=== PATIENT | female | born 1955 | race American Indian/Alaskan Native ===

== ENCOUNTER 2016-12-17 21:37 | Emergency (ER) | payer OTHER ==
[2016-12-17] MEDS ORDERED: TYLENOL PO ONE (23:17)
--- NOTE | 2016-12-18 00:05 | XRay Report ---
FINAL REPORT EXAM: XR ANKLE 3+V LT HISTORY: Left ankle swelling COMPARISON: None available. FINDINGS: Three views of left ankle obtained. Transverse nondisplaced fracture of the distal fibula. Prominent soft tissue swelling. Ankle mortise is preserved. No other fracture. IMPRESSION: Transverse nondisplaced fracture of the distal fibula.
--- NOTE | 2016-12-18 00:40 | Emergency Department Report ---
HPI - General Chief Complaint: Extremity Injury, Lower Time Seen by Provider: 12/18/16 00:35 - HPI HPI: She is a 61-year-old female presents to ED complaining of left ankle swelling and pain started this morning. Patient states earlier this morning she slipped on some mild and sister ankle while she was walking. Patient states this is that she says some pain and swelling on ankle. This is that she applied some isolated episode has gone down. But still painful to walk. She denies a sensation on the foot. She denies any other trauma or bleeding. ED Past Medical Hx - Past Medical History Previous Medical History?: No - Surgical History Past Surgical History?: No - Social History Smoking Status: Current Some Day Smoker Substance Use Type: None - Medications Home Medications: Home Medications Medication Instructions Recorded Confirmed Last Taken Type Acetaminophen/Codeine [Tylenol 1 tab PO Q6H PRN #12 tab 12/18/16 Unknown Rx /Codeine # 3 tab] Cyclobenzaprine [Flexeril] 10 mg PO QHS PRN #24 tablet 12/18/16 Unknown Rx ED Review of Systems ROS: Stated complaint: LT ANKLE PAIN Other details as noted in HPI Constitutional: denies: chills, fever Eyes: denies: eye pain, eye discharge, vision change ENT: denies: ear pain, throat pain Respiratory: denies: cough, shortness of breath, wheezing Cardiovascular: denies: chest pain, palpitations Endocrine: no symptoms reported Gastrointestinal: denies: abdominal pain, nausea, diarrhea Genitourinary: denies: urgency, dysuria, discharge Musculoskeletal: denies: back pain, joint swelling, arthralgia Skin: denies: rash, lesions Neurological: denies: headache, weakness, paresthesias Psychiatric: denies: anxiety, depression Hematological/Lymphatic: denies: easy bleeding, easy bruising Physical Exam - Physical Exam Vital Signs: Vital Signs 12/17/16 23:08 Temperature 98.6 F Pulse Rate 98 H Respiratory 18 Rate Blood Pressure 171/91 Blood Pressure 171/91 [Left] O2 Sat by Pulse 100 Oximetry Physical Exam: GENERAL: Alert and oriented x3, no apparent distress, Normal Gait, atraumatic. HEAD: Head is normocephalic and a-traumatic. EYES: Extra ocular muscles are intact. Pupils are equal, round, and reactive to light and accommodation. NECK: Supple. Non edematous, No carotid bruits. No lymphadenopathy or thyromegaly. No C-spine tenderness LUNGS: Symetrical with respiration, No wheezing, no rales or crackles, CTAB. HEART: S1, S2 present, regular rate and rhythm without murmur, no rubs, no gallops. Non tender to palpation ABDOMEN: No organomegaly was noted,Positive bowel sounds, soft, and non- distended. . Nontender to palpation on all Quadrants, NO CVA tenderness. EXTREMITIES/MUSCULOSKELETAL: No cyanosis, clubbing, rash, lesions or edema. Full ROM bilaterally. UE/LE Pulses 2+ bilaterally. LE + strength bilaterally, left ankle mildly swollen, tender to palpation, no ecchymosis no bleeding. NEUROLOGIC: The patient is cooperative with no focal neurologic deficits. Cranial nerves II through XII are grossly intact. Normal speech. PSYCHIATRIC: Mood is congruent with affect, denies suicidal or homicidal ideations. SKIN: Warm and dry, No lesions, No ulceration or induration present. ED Course Vital Signs 12/17/16 23:08 Temperature 98.6 F Pulse Rate 98 H Respiratory 18 Rate Blood Pressure 171/91 Blood Pressure 171/91 [Left] O2 Sat by Pulse 100 Oximetry ED Medical Decision Making - Radiology Data Radiology results: report reviewed, image reviewed FINAL REPORT EXAM: XR ANKLE 3+V LT HISTORY: Left ankle swelling COMPARISON: None available. FINDINGS: Three views of left ankle obtained. Transverse nondisplaced fracture of the distal fibula. Prominent soft tissue swelling. Ankle mortise is preserved. No other fracture. IMPRESSION: Transverse nondisplaced fracture of the distal fibula. Transcribed By: LMA Dictated By: SERGEY CUNNINGHAM MD Electronically Authenticated By: SERGEY CUNNINGHAM MD Signed Date/Time: 12/18/16 0004 - Medical Decision Making 61-year-old female presents with distal fibular fracture. ED course: He received [facility] ED for pain leg x-rays obtained. See results above. Discussed findings with patient. Also patient importance of following up with orthopedic Dr. Rich Discussed medication as prescribed and did not take all splint until followed up with orthopedic Reynaldo long posterior OCL splint applied. Post-splint Examination: stable, neurovascular intact Vital signs are normal she is in no acute distress showed a sinus instructions given Critical care attestation.: If time is entered above; I have spent that time in minutes in the direct care of this critically ill patient, excluding procedure time. ED Disposition Clinical Impression: Fracture of distal fibula Qualifiers: Encounter type: initial encounter Fracture type: closed Fracture morphology: other fracture Laterality: left Qualified Code(s): S82.832A - Other fracture of upper and lower end of left fibula, initial encounter for closed fracture Disposition: TO HOME OR SELFCARE Is pt being admited?: No Does the pt Need Aspirin: No Condition: Stable Instructions: Ankle Fracture (ED), Leg Fracture (ED), Crutch Instructions (ED) , RICE Therapy (ED) Additional Instructions: Follow the rash protocols as discussed. follow-up with Dr. Rich was orthopedic. Prescriptions: Cyclobenzaprine [Flexeril] 10 mg PO QHS PRN #24 tablet PRN Reason: Muscle Spasm Acetaminophen/Codeine [Tylenol /Codeine # 3 tab] 1 tab PO Q6H PRN #12 tab PRN Reason: Pain Referrals: BOLIVAR RICH MD [Staff Physician] - 3-5 Days Forms: Accompanied Note, Work/School Release Form(ED) Time of Disposition: :22
[2016-12-18] MEDS ORDERED: NORCO 5/325 PO ONE (00:52)
[2016-12-18 02:29] VITALS: BP 162/89
== END 2016-12-18 02:29 | disposition home or self-care (01) ==
LOC: ED 21:37
DX: S82.832A Other fracture of upper and lower end of left fibula, initial encounter for closed fracture (principal); F17.200 Nicotine dependence, unspecified, uncomplicated; W01.0XXA Fall on same level from slipping, tripping and stumbling without subsequent striking against object, initial encounter; Y93.9 Activity, unspecified; Y92.9 Unspecified place or not applicable; Y99.9 Unspecified external cause status

== ENCOUNTER 2018-11-26 05:38 | Inpatient (IN) | payer OTHER ==
[2018-11-26] MEDS ORDERED: ASPIRIN PO ONE (05:57)
[2018-11-26] MEDS ORDERED: PLAVIX PO ONE (05:59)
[2018-11-26] MEDS ORDERED: HEPARIN 10,000 UNITS/10 ML IV ONE (06:00)
[2018-11-26] MEDS ORDERED: MORPHINE IV ONE ×2 (06:00→06:09)
--- NOTE | 2018-11-26 06:06 | Emergency Department Report ---
ED Chest Pain HPI - General Chief Complaint: Chest Pain Stated Complaint: CHEST PAIN Source: patient, EMS Mode of arrival: Stretcher Limitations: Physical Limitation - History of Present Illness Initial Comments: 63 yo F with no PMH presents to ED with complaint of left sided chest pain, onset upon waking this morning. Describes pain as burning, pressure. Denies SOB, N/V. Initial EKG sent via EMS was sent to Dr Rodriguez, who opted to repeat EKG upon ED arrival. EKG here in ED shows ST elevation in anterior leads, no significant reciprocal changes. EKG sent to Dr Rodriguez, wants Code STEMI called. Aspirin given to pt by EMS in the field. Reports tobacco use, denies drug use. PCP: Dr Holly SOTELO Complaint: chest pain -: hour(s) (1) Onset: during rest Pain Location: left chest Pain Radiation: none Severity: severe Severity scale (0 -10): 10 Quality: pressure, other (burning) Consistency: constant Improves With: nothing Worsens With: nothing re: denies: nausea, vomting, diaphoresis, dyspnea Treatments Prior to Arrival: aspirin - Related Data Previous Rx's Medication Instructions Recorded Last Taken Type Acetaminophen/Codeine [Tylenol 1 tab PO Q6H PRN #12 tab 12/18/16 Unknown Rx /Codeine # 3 tab] Cyclobenzaprine [Flexeril] 10 mg PO QHS PRN #24 tablet 12/18/16 Unknown Rx Allergies Allergy/AdvReac Type Severity Reaction Status Date / Time ibuprofen [From Motrin] Allergy Vomiting Verified 12/18/16 00:40 Heart Score - HEART Score History: Moderately suspicious EKG: Significant ST-depression Age: 45-65 Risk factors: 1-2 risk factors Troponin: 1-3x normal limit HEART Score: 6 ED Review of Systems ROS: Stated complaint: CHEST PAIN Other details as noted in HPI Comment: All other systems reviewed and negative Respiratory: denies: shortness of breath Cardiovascular: chest pain Gastrointestinal: denies: nausea, vomiting ED Past Medical Hx - Past Medical History Previous Medical History?: No - Surgical History Past Surgical History?: No - Social History Smoking Status: Current Every Day Smoker Substance Use Type: None - Medications Home Medications: Home Medications Medication Instructions Recorded Confirmed Last Taken Type Acetaminophen/Codeine [Tylenol 1 tab PO Q6H PRN #12 tab 12/18/16 11/26/18 Unknown Rx /Codeine # 3 tab] Cyclobenzaprine [Flexeril] 10 mg PO QHS PRN #24 tablet 12/18/16 11/26/18 Unknown Rx ED Physical Exam - General Limitations: Physical Limitation General appearance: alert, other (appears uncomfortable) - Head Head exam: Present: atraumatic, normocephalic - Eye Eye exam: Present: normal appearance, PERRL, EOMI - ENT ENT exam: Present: mucous membranes moist - Neck Neck exam: Present: normal inspection - Respiratory Respiratory exam: Present: normal lung sounds bilaterally. Absent: respiratory distress - Cardiovascular Cardiovascular Exam: Present: regular rate, normal rhythm - GI/Abdominal GI/Abdominal exam: Present: soft. Absent: distended, tenderness - Extremities Exam Extremities exam: Present: normal inspection - Neurological Exam Neurological exam: Present: alert, oriented X3 - Psychiatric Psychiatric exam: Present: normal affect, normal mood - Skin Skin exam: Present: warm, dry, intact, normal color ED Course Vital Signs 11/26/18 11/26/18 11/26/18 05:54 06:00 06:07 Temperature 98.1 F Pulse Rate 89 Respiratory 18 16 Rate Blood Pressure 174/77 Blood Pressure 174/77 [Left] O2 Sat by Pulse 97 97 Oximetry 11/26/18 06:10 Temperature Pulse Rate Respiratory 18 Rate Blood Pressure Blood Pressure [Left] O2 Sat by Pulse Oximetry ED Medical Decision Making - Lab Data Result diagrams: 11/26/18 13:40 11/27/18 05:40 - EKG Data -: EKG Interpreted by [place] EKG shows normal: sinus rhythm, axis Rate: normal - EKG Data Interpretation: other ( ST elevation in anterior leads, no significant reciprocal changes noted; ventricular bigeminy) - Radiology Data Radiology results: pending, image reviewed - Medical Decision Making 63-year-old female with no reported past medical history presents to ED with acute onset of chest pain. EKG shows ST elevations in the anterior leads, also shows bigeminy. Code STEMI was called. Patient given aspirin by EMS. Plavix, heparin, morphine given here in ED. Patient taken to the technical laboratory asst with Dr. Rodriguez, education program coordinator. - Differential Diagnosis ACS, GERD, arrythmia Critical Care Time: Yes Critical care time in (mins) excluding proc time.: 35 Critical care attestation.: If time is entered above; I have spent that time in minutes in the direct care of this critically ill patient, excluding procedure time. Critical Care Time: 35 minutes ED Disposition Clinical Impression: STEMI (ST elevation myocardial infarction) Disposition: OP ADMIT IP TO THIS HOSP Is pt being admited?: Yes Condition: Stable Time of Disposition: 06:13
[2018-11-26] MEDS ORDERED: ZOFRAN IV ONE (06:09)
[2018-11-26] MEDS ORDERED: ZOFRAN ONE (06:11)
[2018-11-26 06:13] LABS: Basophils % (Auto) 0.5 % (0.0-1.8); Eosinophils # (Auto) 0.1 K/mm3 (0.0-0.4); Eosinophils % (Auto) 0.9 % (0.0-4.3); Hematocrit 47.5 % (30.3-42.9); Hemoglobin 16.1 gm/dl (10.1-14.3); Lymphocytes # (Auto) 1.4 K/mm3 (1.2-5.4); Lymphocytes % (Auto) 20.9 % (13.4-35.0); Mean Corpuscular HGB Conc 34 % (30-34); Mean Corpuscular Volume 94 fl (79-97); Monocytes # (Auto) 0.5 K/mm3 (0.0-0.8); Monocytes % (Auto) 6.7 % (0.0-7.3); Platelet Count 213 K/mm3 (140-440); Red Blood Count 5.05 M/mm3 (3.65-5.03); Red Cell Distribution Width 14.4 % (13.2-15.2)
[2018-11-26 06:26] LABS: BUN/Creatinine Ratio 14; Blood Urea Nitrogen 10 mg/dL (7-17); Calcium 8.7 mg/dL (8.4-10.2); Hemolysis Index 8
[2018-11-26] MEDS ORDERED: HEPARIN/NS 5000 UNIT/500ML(CATH LAB) 1,500 ML IR ONE (06:30)
[2018-11-26 06:31] LABS: INR 0.94 (0.87-1.13)
[2018-11-26] MEDS ORDERED: XYLOCAINE 2% INFILTRATI ONE (06:31)
[2018-11-26 06:32] LABS: Partial Thromboplastin Time 21.3 Sec. (24.2-36.6)
--- NOTE | 2018-11-26 06:35 | XRay Report ---
CHEST 1 VIEW INDICATION: MAIN: Chest Pain code stemi. COMPARISON: None FINDINGS: Support devices: None. Heart: Mild cardiomegaly. Lungs/Pleura: Mild interstitial edema. Additional findings: None. IMPRESSION: 1. Mild cardiomegaly with mild interstitial edema. Signer Name: Ino Hill MD Signed: 11/26/2018 6:31 AM Workstation Name: [id number]
[2018-11-26] MEDS ORDERED: NACL 0.9% 1000 ML 1,000 ML ONE (06:40)
[2018-11-26] MEDS ORDERED: ADRENALIN ONE (06:41)
[2018-11-26] MEDS ORDERED: PHENYLEPHRINE/NS Syringe 1,000 MCG/10 ML IV ONE (06:41)
[2018-11-26] MEDS ORDERED: ATROPINE 0.1% (CARDIAC) ONE (06:41)
[2018-11-26] MEDS ORDERED: XYLOCAINE CARDIAC IV ONE (06:41)
[2018-11-26] MEDS ORDERED: VERSED ONE (06:45)
[2018-11-26] MEDS: SUBLIMAZE ONE ×2 (06:46→07:23)
[2018-11-26] MEDS ORDERED: NITROGLYCERIN SYRINGE 3 ML ONE (06:47)
[2018-11-26] MEDS ORDERED: CALAN ONE (06:47)
[2018-11-26] MEDS: HEPARIN 10,000 UNITS/10 ML ONE ×2 (06:50→06:57)
[2018-11-26] MEDS ORDERED: PLAVIX ONE (07:01)
[2018-11-26] MEDS ORDERED: ALUM-MAG HYDROX-SIMETH 200-200-20MG/5ML ONE ×2 (07:02→08:58)
[2018-11-26 07:08] LABS: Chol/HDL Ratio 2.34 %; HDL Cholesterol 61 mg/dL (40-59); LDL Cholesterol,Direct 92 mg/dL (50-130)
[2018-11-26] MEDS ORDERED: AGGRASTAT DRIP (12.5 MG/250 ML) 12,500 MCG/250 ML BAG IV ONE (07:17)
[2018-11-26] MEDS ORDERED: TRIDIL DRIP 50MG/250ML 50 MG/250 ML BOTTLE ONE (07:27)
[2018-11-26] MEDS ORDERED: TRIDIL DRIP 50MG/250ML 50 MG/250 ML BOTTLE IV ONE (07:46)
[2018-11-26] MEDS ORDERED: ULTRAM PO PRN (07:46)
--- NOTE | 2018-11-26 07:59 | History and Physical Report ---
History of Present Illness Date of examination: 11/26/18 Date of admission: 11/26/2018 Chief complaint: chest pain History of present illness: 63-year-old female with obesity smoker half a pack a day has been having mid sternal chest pressure burning in nature with sweating nausea no vomiting since last night 7 PM patient thought it was gas did not relieve with medications. Patient called EMS this a.m. with recurrent chest discomfort initial EKG was not qualifying for an acute MIs frequent PVCs and no reciprocal changes. EKG in the emergency room had ST elevation in anterior leads with PVCs and brought emergently to the cardiac Respiratory Therapist for acute VT protocol. Left heart cath revealed left main patent LAD proximal 100% circumflex patent obtuse marginal 1 and obtuse marginal 2. RCA moderate severe tortuosity. Mild luminal irregularities. moderate LV dysfunction anterior wall hypokinesis EF 35%. PCI of the LAD with a drug-eluting resolution on next 3.5 x 18 mm postdilated with a 4.0 by 12 restoring DOMINIK-3 flow patient's chest pain did improve. Patient denies any previous episodes chest discomfort like this patient also denies any syncope or palpitations. Denies any fever chills Past History Past Medical History: denies: No medical history Past Surgical History: denies: No surgical history Social history: smoking. denies: alcohol abuse, prescription drug abuse Medications and Allergies Allergies Allergy/AdvReac Type Severity Reaction Status Date / Time ibuprofen [From Motrin] Allergy Vomiting Verified 12/18/16 00:40 Home Medications Medication Instructions Recorded Confirmed Last Taken Type Acetaminophen/Codeine [Tylenol 1 tab PO Q6H PRN #12 tab 12/18/16 Unknown Rx /Codeine # 3 tab] Cyclobenzaprine [Flexeril] 10 mg PO QHS PRN #24 tablet 12/18/16 Unknown Rx Active Meds: Active Medications Acetaminophen/Hydrocodone Bitart ([place] 5/325) 1 each PO Q6H PRN PRN Reason: Pain, Moderate (4-6) Aspirin (Baby Aspirin) 81 mg PO QDAY TATA Atorvastatin Calcium (Lipitor) 80 mg PO QHS TATA Clopidogrel Bisulfate (Plavix) 75 mg PO QDAY TATA Sodium Chloride (Nacl 0.9% 1000 Ml) 1,000 mls @ 75 mls/hr IV DIRECT TATA Stop: 11/26/18 15:59 Nitroglycerin/Dextrose (Tridil Drip 50mg/250ml) 50 mg in 250 mls @ 6 mls/hr IV TITR ONE; Protocol Stop: 11/28/18 01:25 Tirofiban/Sodium Chloride (Aggrastat Drip (12.5 Mg/250 Ml)) 12,500 mcg in 250 mls @ 0 mls/hr IV DIRECT TATA; Protocol Stop: 11/27/18 20:00 Losartan Potassium (Cozaar) 25 mg PO QDAY TATA Metoprolol Tartrate (Lopressor) 50 mg PO BID TATA Potassium Chloride (K-Dur) 20 meq PO ONCE ONE Stop: 11/26/18 07:52 Spironolactone (Aldactone) 25 mg PO DAILY TATA Tramadol HCl (Ultram) 50 mg PO Q4H PRN PRN Reason: Pain, Mild (1-3) Review of Systems All systems: negative (as per hpi) Physical Examination Vital Signs Temp Pulse Resp BP Pulse Ox 98.1 F 89 18 174/77 97 11/26/18 05:54 11/26/18 05:54 11/26/18 05:54 11/26/18 05:54 11/26/18 05:54 General appearance: well-nourished HEENT: Positive: PERRL, Mucus Membranes Moist Neck: Positive: neck supple, trachea midline Cardiac: Positive: Reg Rate and Rhythm, S1/S2, Audible Murmur Lungs: Positive: clear to auscultation, Normal Breath Sounds Neuro: Positive: Grossly Intact Abdomen: Positive: Soft, Active Bowel Sounds. Negative: Tender, Distended Female genitourinary: deferred Skin: Positive: Clear Incision: Cardiac Cath Site Musculoskeletal: No Pain, Normal Range of Motion Extremities: Present: normal. Absent: edema Results 11/26/18 06:05 11/26/18 06:05 Coagulation 11/26/18 Range/Units 06:05 PT 12.3 (12.2-14.9) Sec. INR 0.94 (0.87-1.13) APTT 21.3 L (24.2-36.6) Sec. Lipids 11/26/18 Range/Units 06:05 Triglycerides 55 (2-149) mg/dL Cholesterol 143 (50-199) mg/dL HDL Cholesterol 61 H (40-59) mg/dL Cholesterol/HDL Ratio 2.34 % CBC 11/26/18 Range/Units 06:05 WBC 6.8 (4.5-11.0) K/mm3 RBC 5.05 H (3.65-5.03) M/mm3 Hgb 16.1 H (10.1-14.3) gm/dl Hct 47.5 H (30.3-42.9) % Plt Count 213 (140-440) K/mm3 Lymph # 1.4 (1.2-5.4) K/mm3 [place] # 0.5 (0.0-0.8) K/mm3 Eos # 0.1 (0.0-0.4) K/mm3 Baso # 0.0 (0.0-0.1) K/mm3 Comprehensive Metabolic Panel 11/26/18 Range/Units 06:05 Sodium 144 (137-145) mmol/L Potassium 3.2 L (3.6-5.0) mmol/L Chloride 102.7 (98-107) mmol/L Carbon Dioxide 30 (22-30) mmol/L BUN 10 (7-17) mg/dL Creatinine 0.7 (0.7-1.2) mg/dL Glucose 201 H (65-100) mg/dL Calcium 8.7 (8.4-10.2) mg/dL - Imaging and Cardiology Cardiac cath: report reviewed (Left heart cath revealed left main patent LAD proximal 100% circumflex patent obtuse marginal 1 and obtuse marginal 2. RCA moderate severe tortuosity. Mild luminal irregularities. moderate LV dysfunction anterior wall hypokinesis EF 35%. PCI of the LAD with a drug- eluting resolution on next 3.5 x 18 mm postdilated with a 4.0 by 12 restoring DOMINIK-3 flow ) EKG interpretations - Telemetry EKG Rhythm: Sinus Rhythm (nsr frequent st elevation anterior leads) Assessment and Plan Post anterior wall VT late presentation during patient will be on IV nitroglycerin and IV aggrstat for 12 hours start beta tiarra therapy ARB A ldactone high-dose statin and continue dual antiplatelet therapy. 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 Check echocardiogram and continue to monitor patient closely - Patient Problems (1) Acute combined systolic and diastolic ACC/AHA stage C congestive heart failure Status: Acute (2) Hyperlipemia, mixed Status: Acute (3) Smoker Status: Acute (4) STEMI (ST elevation myocardial infarction) Status: Acute Qualifiers: Involved coronary artery: LAD coronary artery Qualified Code(s): I21.02 - ST elevation (STEMI) myocardial infarction involving left anterior descending coronary artery
[2018-11-26] MEDS ORDERED: NACL 0.9% 1000 ML 1,000 ML IV SCH (08:00)
[2018-11-26] MEDS ORDERED: K-DUR PO ONE (09:00)
[2018-11-26] MEDS: NORCO 5/325 PO PRN ×2 (09:41→21:17)
[2018-11-26] MEDS: TRIDIL DRIP 50MG/250ML 50 MG/250 ML BOTTLE IV SCH (10:06)
--- NOTE | 2018-11-26 10:21 | Consultation ---
History of Present Illness - Reason for Consult Consult date: 11/26/18 medical Mx Requesting physician: NAOMI LUNA - History of Present Illness 63-year-old female with h/o obesity, smokes half a pack a day has been having mid sternal chest pain since last night 7 PM. Pain was burning in nature with sweating, nausea w/o vomiting, patient thought it was simply heart burn due to gas did not relieve with over the counter medications. Patient cont to have chest discomfort and profuse sweating so she called EMS this a.m. and brought to ER. EKG in the emergency room had ST elevation in anterior leads with PVCs and brought emergently to the cardiac Server Support Technician. Left heart cath revealed moderate LV dysfunction anterior wall hypokinesis EF 35%, s/p PCI of the LAD with a drug-eluting stent. Patient denies any previous episodes of chest discomfort like this. She was placed on nitro and aggrstat drip for 12h and admitted to ICU by concrete bucket hooker. Medicine service consulted for further monitoring and Mx. Patient currently c/o moderate chest pain, otherwise looks clinically stable. Past History Past Medical History: denies: No medical history Past Surgical History: denies: No surgical history Social history: smoking. denies: alcohol abuse, prescription drug abuse Family history: hypertension Medications and Allergies Allergies Allergy/AdvReac Type Severity Reaction Status Date / Time ibuprofen [From Motrin] Allergy Vomiting Verified 12/18/16 00:40 Home Medications Medication Instructions Recorded Confirmed Last Taken Type Acetaminophen/Codeine [Tylenol 1 tab PO Q6H PRN #12 tab 12/18/16 11/26/18 Unknown Rx /Codeine # 3 tab] Cyclobenzaprine [Flexeril] 10 mg PO QHS PRN #24 tablet 12/18/16 11/26/18 Unknown Rx Active Meds: Active Medications Acetaminophen/Hydrocodone Bitart ([place] 5/325) 1 each PO Q6H PRN PRN Reason: Pain, Moderate (4-6) Last Admin: 11/26/18 09:41 Dose: 1 each Documented by: Aspirin (Baby Aspirin) 81 mg PO QDAY TATA Atorvastatin Calcium (Lipitor) 80 mg PO QHS TATA Clopidogrel Bisulfate (Plavix) 75 mg PO QDAY TATA Sodium Chloride (Nacl 0.9% 1000 Ml) 1,000 mls @ 75 mls/hr IV DIRECT TATA Stop: 11/26/18 15:59 Tirofiban/Sodium Chloride (Aggrastat Drip (12.5 Mg/250 Ml)) 12,500 mcg in 250 mls @ 18 mls/hr IV DIRECT TATA; Protocol Stop: 11/27/18 20:00 Nitroglycerin/Dextrose (Tridil Drip 50mg/250ml) 50 mg in 250 mls @ 6 mls/hr IV TITR TATA; Protocol Last Admin: 11/26/18 10:06 Dose: 20 mcg/min, 6 mls/hr Documented by: Losartan Potassium (Cozaar) 25 mg PO QDAY TATA Metoprolol Tartrate (Lopressor) 50 mg PO BID TATA Morphine Sulfate (Morphine) 1 mg IV Q3H PRN PRN Reason: Pain, Moderate (4-6) Spironolactone (Aldactone) 25 mg PO DAILY TATA Tramadol HCl (Ultram) 50 mg PO Q4H PRN PRN Reason: Pain, Mild (1-3) Review of Systems Constitutional: no weight loss, no anorexia Ears, nose, mouth and throat: headache, no ear pain, no nasal congestion, no bleeding gums, no sore throat Cardiovascular: chest pain, no orthopnea, no palpitations, no edema, no syncope, no lightheadedness, no shortness of breath, no dyspnea on exertion Respiratory: no cough, no wheezing Gastrointestinal: nausea, no abdominal pain, no vomiting Genitourinary Female: no pelvic pain, no flank pain, no dysuria Menstruation: postmenopausal Rectal: no bleeding Musculoskeletal: no neck stiffness, no morning stiffness, no muscle weakness Integumentary: no rash, no pruritis Neurological: no paralysis, no weakness, no numbness, no tingling, no syncope Psychiatric: no anxiety, no insomnia, no hallucinations Endocrine: no cold intolerance, no heat intolerance Hematologic/Lymphatic: no easy bruising, no easy bleeding Allergic/Immunologic: no urticaria Exam - Physical Exam Narrative exam: General appearance: well-nourished HEENT: Positive: PERRL, Mucus Membranes Moist Neck: Positive: neck supple, trachea midline Cardiac: Positive: Reg Rate and Rhythm, S1/S2, Audible Murmur Lungs: Positive: clear to auscultation, Normal Breath Sounds Neuro: Positive: Grossly Intact Abdomen: Positive: Soft, Active Bowel Sounds. Negative: Tender, Distended Female genitourinary: deferred Skin: Positive: Clear Incision: Cardiac Cath Site Musculoskeletal: No Pain, Normal Range of Motion Extremities: Present: normal. Absent: edema - Constitutional Vitals: Temp Pulse Resp BP Pulse Ox 97.7 F 74 17 150/93 96 11/26/18 08:04 11/26/18 09:00 11/26/18 09:41 11/26/18 09:00 11/26/18 09:49 Results - Labs CBC & Chem 7: 11/26/18 13:40 11/26/18 06:05 Labs: Abnormal lab results 11/26/18 11/26/18 11/26/18 Range/Units 06:05 06:05 06:05 RBC 5.05 H (3.65-5.03) M/mm3 Hgb 16.1 H (10.1-14.3) gm/dl Hct 47.5 H (30.3-42.9) % Seg Neutrophils % 71.0 H (40.0-70.0) % APTT 21.3 L (24.2-36.6) Sec. Potassium 3.2 L (3.6-5.0) mmol/L Glucose 201 H (65-100) mg/dL Troponin T 0.054 H (0.00-0.029) ng/mL HDL Cholesterol 61 H (40-59) mg/dL - Imaging and Cardiology Chest x-ray: report reviewed Assessment and Plan / STEMI (ST elevation myocardial infarction) ST elevation (STEMI) myocardial infarction involving left anterior descending coronary artery - s/p KHURRAM follow further cardiology recommendation / Acute combined systolic and diastolic ACC/AHA stage C congestive heart failure likely from acute STEMI, Ef on cath 35% cardiology following on Nitro and aggrstat drip for now follow 2d echo / Hyperlipemia, mixed cont statin /Tobacco abuse, counselled, nicotine patch as needed /Obesity, diet regimen when clinically stable /Hypokalemia, replete /Dvt Px, on lovenox Cardiac cath: report reviewed (Left heart cath revealed left main patent LAD proximal 100% circumflex patent obtuse marginal 1 and obtuse marginal 2. RCA moderate severe tortuosity. Mild luminal irregularities. moderate LV dysfunction anterior wall hypokinesis EF 35%. PCI of the LAD with a drug- eluting resolution on next 3.5 x 18 mm postdilated with a 4.0 by 12 restoring DOMINIK-3 flow )
--- NOTE | 2018-11-26 10:22 | Progress Note ---
Assessment and Plan Patient is currently stable after cardiac catheterization. Will order PRN morphine for pain. Continue aggrastat for a total administration time of 12 hours and IVF for 8. Wean nitroglycerin. Will obtain echocardiogram in the AM. The patient has been seen in conjunction with Dr. Alberts, who agrees with assessment and plan. - Patient Problems (1) Acute combined systolic and diastolic ACC/AHA stage C congestive heart failure Current Visit: No Status: Acute (2) Hyperlipemia, mixed Current Visit: No Status: Chronic (3) STEMI (ST elevation myocardial infarction) Current Visit: No Status: Acute Qualifiers: Involved coronary artery: LAD coronary artery Qualified Code(s): I21.02 - ST elevation (STEMI) myocardial infarction involving left anterior descending coronary artery (4) Smoker Current Visit: No Status: Chronic Subjective Date of service: 11/26/18 Interval history: Patient lying in bed in NAD. C/O 6/10 chest pain. Right radial site pressure dressing replaced d/t complaints of tightness and numbness of hand. Pulse palpable. Hand swelling noted. No complications at site. Currently on nitroglycerin drip and aggrastat. Objective Last Vital Signs Temp 97.7 F 11/26/18 08:04 Pulse 74 11/26/18 09:00 Resp 17 11/26/18 09:41 BP 150/93 11/26/18 09:00 Pulse Ox 96 11/26/18 09:49 - Physical Examination General: No Apparent Distress HEENT: Positive: PERRL, Mucus Membranes Moist Neck: Positive: neck supple, trachea midline Cardiac: Positive: Reg Rate and Rhythm Lungs: Positive: Normal Exam Neuro: Positive: Grossly Intact Abdomen: Positive: Unremarkable, Soft, Active Bowel Sounds. Negative: Tender, Distended Skin: Positive: Clear Incision: Cardiac Cath Site (Dressing replaced. No complications at site. ) Musculoskeletal: No Pain, Normal Range of Motion Extremities: Present: normal. Absent: edema (Right hand) - Labs and Meds Coagulation 11/26/18 Range/Units 06:05 PT 12.3 (12.2-14.9) Sec. INR 0.94 (0.87-1.13) APTT 21.3 L (24.2-36.6) Sec. Lipids 11/26/18 Range/Units 06:05 Triglycerides 55 (2-149) mg/dL Cholesterol 143 (50-199) mg/dL HDL Cholesterol 61 H (40-59) mg/dL Cholesterol/HDL Ratio 2.34 % CBC 11/26/18 Range/Units 06:05 WBC 6.8 (4.5-11.0) K/mm3 RBC 5.05 H (3.65-5.03) M/mm3 Hgb 16.1 H (10.1-14.3) gm/dl Hct 47.5 H (30.3-42.9) % Plt Count 213 (140-440) K/mm3 Lymph # 1.4 (1.2-5.4) K/mm3 [place] # 0.5 (0.0-0.8) K/mm3 Eos # 0.1 (0.0-0.4) K/mm3 Baso # 0.0 (0.0-0.1) K/mm3 Comprehensive Metabolic Panel 11/26/18 Range/Units 06:05 Sodium 144 (137-145) mmol/L Potassium 3.2 L (3.6-5.0) mmol/L Chloride 102.7 (98-107) mmol/L Carbon Dioxide 30 (22-30) mmol/L BUN 10 (7-17) mg/dL Creatinine 0.7 (0.7-1.2) mg/dL Glucose 201 H (65-100) mg/dL Calcium 8.7 (8.4-10.2) mg/dL - Imaging and Cardiology Cardiac cath: report reviewed (Left heart cath revealed left main patent LAD proximal 100% circumflex patent obtuse marginal 1 and obtuse marginal 2. RCA moderate severe tortuosity. Mild luminal irregularities. moderate LV dysfunction anterior wall hypokinesis EF 35%. PCI of the LAD with a drug- eluting resolution on next 3.5 x 18 mm postdilated with a 4.0 by 12 restoring DOMINIK-3 flow ) - Telemetry EKG Rhythm: Sinus Rhythm
[2018-11-26] MEDS: MORPHINE IV PRN ×2 (10:40→13:31)
[2018-11-26] MEDS: COZAAR PO SCH (10:41)
[2018-11-26] MEDS: LOPRESSOR PO SCH ×2 (10:42→21:18)
[2018-11-26] MEDS: ALDACTONE PO SCH (10:42)
--- NOTE | 2018-11-26 11:59 | Cardiac Catherization Report ---
LEFT HEART CATHETERIZATION AND PERCUTANEOUS CORONARY INTERVENTION AND INTRAVASCULAR ULTRASOUND CLINICAL INFORMATION: This is a 63-year-old -[place] female who is a smoker. Denies any hypertension, diabetes, cholesterol, has been having pain since 7:00 p.m. yesterday, felt like burning sensation, called EMS this morning, which showed PVC and questionable anterior wall VT. The qualifying EKG was done in the ED, which showed more ST elevation anteriorly, but with no reciprocal changes. Similarly, the patient in view of constant chest pain, brought emergently to the slab tripper. The patient was done with moderate sedation, 1 mg Versed, 50 mcg of fentanyl. Start sedation time 6:46 a.m., finishes at 7:23 a.m., which is 37 minutes of supervised sedation. PROCEDURE IN DETAIL: Procedure was performed by the right radial artery, sterile technique, local anesthesia, 6-Polish radial sheath inserted. The patient had moderate to severe tortuosity of the right innominate and subclavian engaged. LV gram done in MARLEN and SOLIS view shows moderate LV dysfunction, anterior wall hypokinesis, LVEDP EF approximately 35% with LVEDP of 22 mmHg, LV is 174, aortic is 174/91. No gradient across the aortic valve on pullback. The RCA has an inferior takeoff, difficult engagement, use a 3RDC catheter to engage, is a medium to large caliber vessel that is patent with moderate to severe tortuosity that is patent with mild luminal irregularities, bifurcates into medium caliber PDA with moderate tortuosity with mild luminal irregularities. Left system engaged with a JL3.5 catheter. Left main is large and patent, bifurcates into large LAD, proximal 100%. Circumflex is a large caliber vessel that is patent, then bifurcates into large OM1 and OM2 that are patent with mild luminal irregularities with moderate to severe tortuosity, so percutaneous coronary intervention of the LAD: 1. Engaged the left system with an EBU 3.5 guiding catheter. 2. Crossed into distal LAD with short [facility] wire. 3. Predilated with 2.5 x 12 balloon inflated at 12 atmospheres x 2 inflations, restored DOMINIK 3 flow. Residual stenosis was 95%. 4. Then balloon further with 3.0 x 12 at 12 atmospheres. Reduced stenosis less than 50%. 5. The patient's intravascular ultrasound shows left main patent. Mild luminal irregularities. LAD distal to the lesion reference vessel 3.5, proximal is 406. 6. Stented the proximal portion of the LAD with a drug-eluting Resolute 3.5 x 18 inflated at 15 atmospheres. 7. Post-dilated with a 4.0 x 12 noncompliant balloon at 15 atmospheres x 2 inflations. 8. Excellent angiographic result. Continued DOMINIK 3 flow. No dissection or perforation noted. 9. Removed coronary wire, multiple angiograms, continued DOMINIK 3 flow, good stent apposition and expansion noted. 10. A 6-Polish guiding catheter taken over guidewire, 6-Polish radial sheath was discontinued. Radial dressing applied. No hematoma, no bleeding. SUMMARY: 1. Successful PCI of the proximal LAD with a drug-eluting Resolute 3.5 x 18 and post-dilated with a 4.0 x 12. Distal LAD has around 30% lesion. Small diagonals are patent. The left main is patent. Circumflex is large and patent. OM1 and OM2 are large and patent with moderate tortuosity. RCA is a [id number] caliber vessel, patent with moderate to severe tortuosity and with mild irregularities and PDA is a medium caliber vessel that is patent with mild irregularities with moderate to severe tortuosity moderate LV dysfunction, anterior wall hypokinesis, EF approximately 35%. 2. Post-PCI care and post-radial care. Aspirin, Plavix, statin, beta blockers and RAMANDEEP. We will continue Aggrastat and nitrates. The patient was also discomfort post-procedure and discussed in detail with the patient and patient's family and strongly urged smoking cessation. JOB# [id number] KELLY/ANTONIA
--- NOTE | 2018-11-26 12:12 | Consultation ---
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 Past History Past Medical History: denies: No medical history Past Surgical History: denies: No surgical history Social history: smoking. denies: alcohol abuse, prescription drug abuse Medications and Allergies Allergies Allergy/AdvReac Type Severity Reaction Status Date / Time ibuprofen [From Motrin] Allergy Vomiting Verified 12/18/16 00:40 Home Medications Medication Instructions Recorded Confirmed Last Taken Type Acetaminophen/Codeine [Tylenol 1 tab PO Q6H PRN #12 tab 12/18/16 11/26/18 Unknown Rx /Codeine # 3 tab] Cyclobenzaprine [Flexeril] 10 mg PO QHS PRN #24 tablet 12/18/16 11/26/18 Unknown Rx Active Meds: Active Medications Acetaminophen/Hydrocodone Bitart ([place] 5/325) 1 each PO Q6H PRN PRN Reason: Pain, Moderate (4-6) Last Admin: 11/26/18 09:41 Dose: 1 each Documented by: Aspirin (Baby Aspirin) 81 mg PO QDAY TATA Atorvastatin Calcium (Lipitor) 80 mg PO QHS TATA Clopidogrel Bisulfate (Plavix) 75 mg PO QDAY TATA Sodium Chloride (Nacl 0.9% 1000 Ml) 1,000 mls @ 75 mls/hr IV DIRECT TATA Stop: 11/26/18 15:59 Tirofiban/Sodium Chloride (Aggrastat Drip (12.5 Mg/250 Ml)) 12,500 mcg in 250 mls @ 18 mls/hr IV DIRECT TATA; Protocol Stop: 11/27/18 20:00 Nitroglycerin/Dextrose (Tridil Drip 50mg/250ml) 50 mg in 250 mls @ 6 mls/hr IV TITR TATA; Protocol Last Titration: 11/26/18 10:59 Dose: 40 mcg/min, 12 mls/hr Documented by: Losartan Potassium (Cozaar) 25 mg PO QDAY [facility] Last Admin: 11/26/18 10:41 Dose: 25 mg Documented by: Metoprolol Tartrate (Lopressor) 50 mg PO BID [facility] Last Admin: 11/26/18 10:42 Dose: 50 mg Documented by: Morphine Sulfate (Morphine) 1 mg IV Q3H PRN PRN Reason: Pain, Moderate (4-6) Last Admin: 11/26/18 10:40 Dose: 1 mg Documented by: Spironolactone (Aldactone) 25 mg PO DAILY TATA Last Admin: 11/26/18 10:42 Dose: 25 mg Documented by: Tramadol HCl (Ultram) 50 mg PO Q4H PRN PRN Reason: Pain, Mild (1-3) Review of Systems All systems: negative Exam - Constitutional Vitals: Temp Pulse Resp BP Pulse Ox 98.5 F 74 16 141/81 95 11/26/18 08:22 11/26/18 10:50 11/26/18 10:50 11/26/18 10:50 11/26/18 10:50 Results - Labs CBC & Chem 7: 11/26/18 06:05 11/26/18 06:05 Labs: Abnormal lab results 11/26/18 11/26/18 11/26/18 Range/Units 06:05 06:05 06:05 RBC 5.05 H (3.65-5.03) M/mm3 Hgb 16.1 H (10.1-14.3) gm/dl Hct 47.5 H (30.3-42.9) % Seg Neutrophils % 71.0 H (40.0-70.0) % APTT 21.3 L (24.2-36.6) Sec. Potassium 3.2 L (3.6-5.0) mmol/L Glucose 201 H (65-100) mg/dL Troponin T 0.054 H (0.00-0.029) ng/mL HDL Cholesterol 61 H (40-59) mg/dL - Imaging and Cardiology Chest x-ray: image reviewed (Cardiomegaly but otherwise clear) Assessment and Plan 63 y/o obese female admitted with acute [place] s/p PCI 1. BP control 2. Weight loss 3. Anticoagulation 4. Cholesterol control 5. Smoking cessation.
[2018-11-26] MEDS: AGGRASTAT DRIP (12.5 MG/250 ML) 12,500 MCG/250 ML BAG IV SCH ×2 (12:25→16:00)
[2018-11-26 13:55] LABS: Hematocrit 41.5 % (30.3-42.9); Hemoglobin 14.1 gm/dl (10.1-14.3)
[2018-11-26] MEDS ORDERED: TYLENOL #3 PO PRN (15:43)
[2018-11-26] MEDS: TYLENOL PO PRN ×2 (15:59→20:18)
[2018-11-26] MEDS: ZOFRAN IV PRN (18:35)
[2018-11-27] MEDS: AGGRASTAT DRIP (12.5 MG/250 ML) 12,500 MCG/250 ML BAG IV SCH (05:46)
[2018-11-27 06:27] LABS: Creatine Kinase MB 182.3 ng/mL (0.0-4.0)
[2018-11-27 06:28] LABS: BUN/Creatinine Ratio 13; Blood Urea Nitrogen 9 mg/dL (7-17); Hemolysis Index 3
--- NOTE | 2018-11-27 06:47 | Event Note ---
Date: 11/27/18 Troponin elevated at 2.710 this morning. Pt is s/p PCI on Nitro gtt and Aggrastat. Pt denies chest pain. Ordered repeat troponin
--- NOTE | 2018-11-27 08:54 | Progress Note ---
Assessment and Plan Assessment and plan: --STEMI (ST elevation myocardial infarction) ST elevation (STEMI) myocardial infarction involving left anterior descending coronary artery - s/p KHURRAM Dual antiplatelet therapy, beta blockers RAMANDEEP inhibitor's nitrates and statins Ideology following --Acute combined systolic and diastolic ACC/AHA stage C congestive heart failure likely from acute STEMI, Ef on cath 35%, cardiology following on Nitro and aggrstat drip, discontinued this morning ECHO:Moderate LVH, ejection fraction 40% -- Hyperlipemia, mixed, cont statin --Tobacco abuse, smoking cessation counselled, nicotine patch as needed --Obesity, diet regimen when clinically stable --Hypokalemia, replaced --Dvt Px, on lovenox Consults and recommendations noted and appreciated Patient is stable to be transferred out of ICU to telemetry Critical care time 35 minutes Cardiac cath: report reviewed (Left heart cath revealed left main patent LAD proximal 100% circumflex patent obtuse marginal 1 and obtuse marginal 2. RCA moderate severe tortuosity. Mild luminal irregularities. moderate LV dysfunction anterior wall hypokinesis EF 35%. PCI of the LAD with a drug- eluting resolution on next 3.5 x 18 mm postdilated with a 4.0 by 12 restoring DOMINIK-3 flow ) History Interval history: Patient seen and examined medical records reviewed Patient feels slightly better denies any chest pain or shortness of breath On nitroglycerin and Aggrastat drip Alert awake oriented 3 Vital signs noted Hospitalist Physical - Constitutional Vitals: Temp Pulse Resp BP Pulse Ox 98.5 F 76 11 L 115/78 97 11/27/18 04:00 11/27/18 04:00 11/27/18 04:00 11/26/18 21:18 11/27/18 07:38 General appearance: Present: no acute distress, well-nourished, obese (morbidly obese) - EENT Eyes: Present: PERRL, EOM intact - Neck Neck: Present: supple, normal ROM - Respiratory Respiratory effort: normal Respiratory: bilateral: diminished, negative: rales, rhonchi, wheezing - Cardiovascular Rhythm: regular Heart Sounds: Present: S1 & S2 - Extremities Extremities: no ischemia, No edema - Abdominal General gastrointestinal: soft, non-tender, non-distended, normal bowel sounds - Integumentary Integumentary: Present: clear, warm - Psychiatric Psychiatric: appropriate mood/affect, cooperative - Neurologic Neurologic: CNII-XII intact, moves all extremities Results - Labs CBC & Chem 7: 11/26/18 13:40 11/27/18 05:40 Labs: Laboratory Last Values WBC 6.8 K/mm3 (4.5-11.0) 11/26/18 06:05 RBC 5.05 M/mm3 (3.65-5.03) H 11/26/18 06:05 Hgb 14.1 gm/dl (10.1-14.3) 11/26/18 13:40 Hct 41.5 % (30.3-42.9) D 11/26/18 13:40 MCV 94 fl (79-97) 11/26/18 06:05 MCH 32 pg (28-32) 11/26/18 06:05 MCHC 34 % (30-34) 11/26/18 06:05 RDW 14.4 % (13.2-15.2) 11/26/18 06:05 Plt Count 213 K/mm3 (140-440) 11/26/18 06:05 Lymph % (Auto) 20.9 % (13.4-35.0) 11/26/18 06:05 Rice % (Auto) 6.7 % (0.0-7.3) 11/26/18 06:05 Eos % (Auto) 0.9 % (0.0-4.3) 11/26/18 06:05 Baso % (Auto) 0.5 % (0.0-1.8) 11/26/18 06:05 Lymph # 1.4 K/mm3 (1.2-5.4) 11/26/18 06:05 Rice # 0.5 K/mm3 (0.0-0.8) 11/26/18 06:05 Eos # 0.1 K/mm3 (0.0-0.4) 11/26/18 06:05 Baso # 0.0 K/mm3 (0.0-0.1) 11/26/18 06:05 Seg Neutrophils % 71.0 % (40.0-70.0) H 11/26/18 06:05 Seg Neutrophils # 4.8 K/mm3 (1.8-7.7) 11/26/18 06:05 PT 12.3 Sec. (12.2-14.9) 11/26/18 06:05 INR 0.94 (0.87-1.13) 11/26/18 06:05 APTT 21.3 Sec. (24.2-36.6) L 11/26/18 06:05 Sodium 137 mmol/L (137-145) 11/27/18 05:40 Potassium 3.9 mmol/L (3.6-5.0) D 11/27/18 05:40 Chloride 101.4 mmol/L (98-107) 11/27/18 05:40 Carbon Dioxide 28 mmol/L (22-30) 11/27/18 05:40 12 mmol/L 11/27/18 05:40 BUN 9 mg/dL (7-17) 11/27/18 05:40 0.7 mg/dL (0.7-1.2) 11/27/18 05:40 Estimated GFR > 60 ml/min 11/27/18 05:40 13 % 11/27/18 05:40 Glucose 118 mg/dL (65-100) H 11/27/18 05:40 Calcium 8.0 mg/dL (8.4-10.2) L 11/27/18 05:40 1676 units/L (30-135) H 11/27/18 05:40 CK-MB (CK-2) 182.3 ng/mL (0.0-4.0) H 11/27/18 05:40 CK-MB (CK-2) Rel Index 10.8 (0-4) H 11/27/18 05:40 2.710 ng/mL (0.00-0.029) H* D 11/27/18 05:40 Triglycerides 55 mg/dL (2-149) 11/26/18 06:05 Cholesterol 143 mg/dL (50-199) 11/26/18 06:05 92 mg/dL (50-130) 11/26/18 06:05 61 mg/dL (40-59) H 11/26/18 06:05 2.34 % 11/26/18 06:05 Blood Type O POSITIVE 11/26/18 06:05 Antibody Screen Negative 11/26/18 06:05 Active Medications - Current Medications Current Medications: Generic Name Dose Route Start Last Admin Trade Name Freq PRN Reason Stop Dose Admin Acetaminophen 650 mg 11/26/18 15:44 11/26/18 20:18 Tylenol PO 650 mg Q4H PRN Administration Pain MILD(1-3)/Fever >100.5/[place] Acetaminophen/Hydrocodone Bitart 1 each 11/26/18 07:46 11/26/18 21:17 [place] 5/325 PO 1 each Q6H PRN Administration Pain, Moderate (4-6) Aspirin 81 mg 11/27/18 10:00 Baby Aspirin PO QDAY TATA Atorvastatin Calcium 80 mg 11/26/18 22:00 11/26/18 21:18 Lipitor PO 80 mg QHS TATA Administration Clopidogrel Bisulfate 75 mg 11/27/18 10:00 Plavix PO QDAY TATA Cyclobenzaprine HCl 10 mg 11/26/18 15:43 Flexeril PO QHS PRN Muscle Spasm Tirofiban/Sodium Chloride 12,500 mcg in 250 mls @ 18 mls/hr 11/26/18 08:00 11/27/18 05:46 Aggrastat Drip (12.5 Mg/250 Ml) IV 11/27/18 20:00 18 mls/hr DIRECT TATA Administration Protocol Per Protocol Nitroglycerin/Dextrose 50 mg in 250 mls @ 6 mls/hr 11/26/18 10:00 11/27/18 00:03 Tridil Drip 50mg/250ml IV 20 mcg/min TITR TATA 6 mls/hr Titration Protocol 20 MCG/MIN Losartan Potassium 25 mg 11/26/18 10:00 11/26/18 10:41 Cozaar PO 25 mg QDAY TATA Administration Metoprolol Tartrate 50 mg 11/26/18 10:00 11/26/18 21:18 Lopressor PO 50 mg BID TATA Administration Morphine Sulfate 1 mg 11/26/18 10:17 11/26/18 13:31 Morphine IV 1 mg Q3H PRN Administration Pain, Moderate (4-6) Ondansetron HCl 4 mg 11/26/18 18:15 11/26/18 18:35 Zofran IV 4 mg Q8H PRN Administration N/V unrelieved by Christoph Spironolactone 25 mg 11/26/18 10:00 11/26/18 10:42 Aldactone PO 25 mg DAILY TATA Administration Tramadol HCl 50 mg 11/26/18 07:46 Ultram PO Q4H PRN Pain, Mild (1-3)
[2018-11-27] MEDS: TRIDIL DRIP 50MG/250ML 50 MG/250 ML BOTTLE IV SCH (09:00)
[2018-11-27] MEDS: COZAAR PO SCH (10:00)
[2018-11-27] MEDS: BABY ASPIRIN PO SCH (10:00)
[2018-11-27] MEDS: PLAVIX PO SCH (10:00)
[2018-11-27] MEDS: ALDACTONE PO SCH (10:00)
[2018-11-27] MEDS: LOPRESSOR PO SCH ×2 (10:00→21:11)
--- NOTE | 2018-11-27 11:13 | Progress Note ---
Assessment and Plan 63 y/o obese female admitted with acute [place] s/p PCI 1. BP control 2. Weight loss 3. Anticoagulation 4. Cholesterol control 5. Smoking cessation. 6. Nitro turned off, chest pain free, suggest transfer to Tele. Will discuss with hospitalist. Subjective Date of service: 11/27/18 Interval history: No acute events. No chest pain. Nitro at starting dosage and has not been titrated up or weaned off. Trop was elevated this am but patient is post PCI on yesterday morning. She has no chest pain. Vitals have been stable. Objective - Constitutional Vitals: Vital Signs - 12hr 11/27/18 11/27/18 11/27/18 00:00 04:00 07:38 Temperature 98.1 F 98.5 F Pulse Rate 75 77 Pulse Rate [ 69 76 From Monitor] Respiratory 14 11 L Rate O2 Sat by Pulse 95 98 97 Oximetry General appearance: Present: no acute distress, well-nourished, obese - EENT Eyes: PERRL, EOM intact ENT: hearing intact - Neck Neck: supple, normal ROM - Respiratory Respiratory effort: normal - Cardiovascular Rhythm: regular Heart Sounds: Present: S1 & S2 - Gastrointestinal General gastrointestinal: Present: soft, non-tender - Labs CBC & Chem 7: 11/26/18 13:40 11/27/18 05:40 Labs: Abnormal lab results 11/27/18 11/27/18 Range/Units 05:40 10:50 Glucose 118 H (65-100) mg/dL POC Glucose 131 H (70-105) Calcium 8.0 L (8.4-10.2) mg/dL Total Creatine Kinase 1676 H (30-135) units/L CK-MB (CK-2) 182.3 H (0.0-4.0) ng/mL CK-MB (CK-2) Rel Index 10.8 H (0-4) Troponin T 2.710 H* D (0.00-0.029) ng/mL - Imaging and cardiology Chest x-ray: image reviewed (no evidence of acute intraparenchymal lung disease) Medications & Allergies - Medications Allergies/Adverse Reactions: Allergies ibuprofen [From Motrin] Allergy (Verified 12/18/16 00:40) Vomiting Home Medications: Home Medications Medication Instructions Recorded Confirmed Last Taken Type Acetaminophen/Codeine [Tylenol 1 tab PO Q6H PRN #12 tab 09/03/17 08/12/19 Unknown Rx /Codeine # 3 tab] Cyclobenzaprine [Flexeril] 10 mg PO QHS PRN #24 tablet 12/18/16 11/26/18 Unknown Rx Active Medications: Generic Name Dose Route Start Last Admin Trade Name Freq PRN Reason Stop Dose Admin Acetaminophen 650 mg 11/26/18 15:44 11/26/18 20:18 Tylenol PO 650 mg Q4H PRN Administration Pain MILD(1-3)/Fever >100.5/[place] Acetaminophen/Hydrocodone Bitart 1 each 11/26/18 07:46 11/26/18 21:17 [place] 5/325 PO 1 each Q6H PRN Administration Pain, Moderate (4-6) Aspirin 81 mg 11/27/18 10:00 Baby Aspirin PO QDAY TATA Atorvastatin Calcium 80 mg 11/26/18 22:00 11/26/18 21:18 Lipitor PO 80 mg QHS TATA Administration Clopidogrel Bisulfate 75 mg 11/27/18 10:00 Plavix PO QDAY TATA Cyclobenzaprine HCl 10 mg 11/26/18 15:43 Flexeril PO QHS PRN Muscle Spasm Tirofiban/Sodium Chloride 12,500 mcg in 250 mls @ 18 mls/hr 11/26/18 08:00 11/27/18 05:46 Aggrastat Drip (12.5 Mg/250 Ml) IV 11/27/18 20:00 18 mls/hr DIRECT TATA Administration Protocol Per Protocol Nitroglycerin/Dextrose 50 mg in 250 mls @ 6 mls/hr 11/26/18 10:00 11/27/18 00:03 Tridil Drip 50mg/250ml IV 20 mcg/min TITR TATA 6 mls/hr Titration Protocol 20 MCG/MIN Lisinopril 5 mg 11/27/18 12:00 Zestril PO QDAY TATA Losartan Potassium 25 mg 11/26/18 10:00 11/26/18 10:41 Cozaar PO 25 mg QDAY TATA Administration Metoprolol Tartrate 50 mg 11/26/18 10:00 11/26/18 21:18 Lopressor PO 50 mg BID TATA Administration Morphine Sulfate 1 mg 11/26/18 10:17 11/26/18 13:31 Morphine IV 1 mg Q3H PRN Administration Pain, Moderate (4-6) Ondansetron HCl 4 mg 11/26/18 18:15 11/26/18 18:35 Zofran IV 4 mg Q8H PRN Administration N/V unrelieved by Christoph Spironolactone 25 mg 11/26/18 10:00 11/26/18 10:42 Aldactone PO 25 mg DAILY TATA Administration Tramadol HCl 50 mg 11/26/18 07:46 Ultram PO Q4H PRN Pain, Mild (1-3)
--- NOTE | 2018-11-27 11:18 | Progress Note ---
Assessment and Plan Patient improving from cardiac standpoint. Will increase losartan for better BP control and to facilitate weaning of nitroglycerin. Will obtain venous and arterial ultrasound of RUE. Recommend wound care consult to evaluate blistering of right wrist. The patient has been seen in conjunction with Dr. Alberts, who agrees with assessment and plan. - Patient Problems (1) Acute combined systolic and diastolic ACC/AHA stage C congestive heart failure Current Visit: No Status: Acute (2) Hyperlipemia, mixed Current Visit: No Status: Chronic (3) Smoker Current Visit: No Status: Chronic Subjective Date of service: 11/27/18 Interval history: Patient lying in bed in NAD. No CP. Right arm and hand swollen with ecchymosis and blistering near access site. 2+ pulse. Objective Last Vital Signs Temp 98.5 F 11/27/18 04:00 Pulse 76 11/27/18 04:00 Resp 11 L 11/27/18 04:00 BP 115/78 11/26/18 21:18 Pulse Ox 97 11/27/18 07:38 - Physical Examination General: No Apparent Distress HEENT: Positive: PERRL, Mucus Membranes Moist Neck: Positive: neck supple, trachea midline Cardiac: Positive: Reg Rate and Rhythm Lungs: Positive: clear to auscultation Neuro: Positive: Grossly Intact Abdomen: Positive: Unremarkable, Soft, Active Bowel Sounds. Negative: Tender, Distended /Rectal: Other (deferred) Skin: Positive: Clear, Other (right wrist blistering and ecchymosis) Incision: Cardiac Cath Site (right wrist with blistering and ecchymosis. No bleeding or hematoma. ) Musculoskeletal: No Pain, Normal Range of Motion Extremities: Present: normal, edema (Right hand) - Labs and Meds Cardiac Enzymes 11/27/18 Range/Units 05:40 CK-MB (CK-2) 182.3 H (0.0-4.0) ng/mL CBC 11/26/18 Range/Units 13:40 Hgb 14.1 (10.1-14.3) gm/dl Hct 41.5 D (30.3-42.9) % Comprehensive Metabolic Panel 11/27/18 Range/Units 05:40 Sodium 137 (137-145) mmol/L Potassium 3.9 D (3.6-5.0) mmol/L Chloride 101.4 (98-107) mmol/L Carbon Dioxide 28 (22-30) mmol/L BUN 9 (7-17) mg/dL Creatinine 0.7 (0.7-1.2) mg/dL Glucose 118 H (65-100) mg/dL Calcium 8.0 L (8.4-10.2) mg/dL - Imaging and Cardiology Cardiac cath: report reviewed (Left heart cath revealed left main patent LAD proximal 100% circumflex patent obtuse marginal 1 and obtuse marginal 2. RCA moderate severe tortuosity. Mild luminal irregularities. moderate LV dysfunction anterior wall hypokinesis EF 35%. PCI of the LAD with a drug- eluting resolution on next 3.5 x 18 mm postdilated with a 4.0 by 12 restoring DOMINIK-3 flow ) - Telemetry EKG Rhythm: Sinus Rhythm
[2018-11-27] MEDS ORDERED: ZESTRIL PO SCH (12:00)
--- NOTE | 2018-11-27 16:19 | Vascular Lab Report ---
RIGHT UPPER EXTREMITY VENOUS DOPPLER ULTRASOUND HISTORY: Upper extremity pain and swelling. COMPARISON: None. TECHNIQUE: Grayscale, color and spectral Doppler imaging of the venous system of the right upper extr emity was performed. FINDINGS: Internal Jugular Vein: Normal grayscale appearance and flow. Subclavian Vein: Normal grayscale appearance and flow. Axillary Vein: Normal venous flow, compressibility and augmentation. Brachial vein: Normal venous flow, compressibility and augmentation. Basilic vein: Normal venous flow, compressibility and augmentation. Cephalic vein: Normal venous flow, compressibility and augmentation. Radial vein: Normal venous flow, compressibility and augmentation. Ulnar vein: Normal venous flow, compressibility and augmentation. Additional Findings: None. IMPRESSION: 1. No sonographic evidence of deep venous thrombosis in the right upper extremity. Signer Name: Bill Moser Jr, MD Signed: 11/27/2018 4:15 PM Workstation Name: [id number]
[2018-11-28 05:07] LABS: Hematocrit 37.5 % (30.3-42.9); Hemoglobin 12.6 gm/dl (10.1-14.3)
[2018-11-28 05:14] LABS: Creatine Kinase MB 21.4 ng/mL (0.0-4.0)
[2018-11-28 05:15] LABS: BUN/Creatinine Ratio 15; Blood Urea Nitrogen 9 mg/dL (7-17); Calcium 8.2 mg/dL (8.4-10.2); Hemolysis Index 6
[2018-11-28] MEDS: COZAAR PO SCH (09:51)
[2018-11-28] MEDS: ALDACTONE PO SCH (09:51)
[2018-11-28] MEDS: PLAVIX PO SCH (09:51)
[2018-11-28] MEDS: BABY ASPIRIN PO SCH (09:53)
[2018-11-28] MEDS: LOPRESSOR PO SCH ×2 (09:54→21:04)
--- NOTE | 2018-11-28 11:07 | Progress Note ---
Assessment and Plan Patient is stable from a cardiac standpoint. Continue current management. Recommend vascular consult to further evaluate RUE edema. The patient has been seen in conjunction with Dr. Alberts, who agrees with assessment and plan. 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 Right arm remains swollen and ecchymotic with blistering in right radial site area. U/S on 11/27/18 negative. SR in 80s on telemetry. Objective Last Vital Signs Temp 98.5 F 11/28/18 07:45 Pulse 105 H 11/28/18 09:54 Resp 18 11/28/18 07:45 BP 154/81 11/28/18 09:54 Pulse Ox 99 11/28/18 03:33 - Physical Examination General: No Apparent Distress HEENT: Positive: PERRL, Mucus Membranes Moist Neck: Positive: neck supple, trachea midline Cardiac: Positive: Reg Rate and Rhythm Lungs: Positive: Normal Exam Neuro: Positive: Grossly Intact Abdomen: Positive: Unremarkable, Soft, Active Bowel Sounds. Negative: Tender, Distended /Rectal: Other (deferred) Skin: Positive: Clear, Other (right wrist blistering and ecchymosis) Incision: Cardiac Cath Site (right wrist with blistering and ecchymosis. No bleeding or hematoma. ) Musculoskeletal: No Pain, Normal Range of Motion Extremities: Present: normal, edema (RUE) - Labs and Meds Cardiac Enzymes 11/28/18 Range/Units 03:35 CK-MB (CK-2) 21.4 H (0.0-4.0) ng/mL CBC 11/28/18 Range/Units 03:35 Hgb 12.6 (10.1-14.3) gm/dl Hct 37.5 (30.3-42.9) % Plt Count 206 (140-440) K/mm3 Comprehensive Metabolic Panel 11/28/18 Range/Units 03:35 Sodium 143 (137-145) mmol/L Potassium 3.9 (3.6-5.0) mmol/L Chloride 108.1 H (98-107) mmol/L Carbon Dioxide 27 (22-30) mmol/L BUN 9 (7-17) mg/dL Creatinine 0.6 L (0.7-1.2) mg/dL Glucose 125 H (65-100) mg/dL Calcium 8.2 L (8.4-10.2) mg/dL - Imaging and Cardiology Cardiac cath: report reviewed (Left heart cath revealed left main patent LAD proximal 100% circumflex patent obtuse marginal 1 and obtuse marginal 2. RCA moderate severe tortuosity. Mild luminal irregularities. moderate LV dysfunction anterior wall hypokinesis EF 35%. PCI of the LAD with a drug- eluting resolution on next 3.5 x 18 mm postdilated with a 4.0 by 12 restoring DOMINIK-3 flow ) - Telemetry EKG Rhythm: Sinus Rhythm
--- NOTE | 2018-11-28 12:50 | Consultation ---
History of Present Illness - Reason for Consult Consult date: 11/28/18 right forearm swelling - History of Present Illness Patient with a history of acute PA status post cardiac cath with placement of the stent in the LAD yesterday for a right radial approach. Post procedure, the patient began to develop right forearm swelling. At time of examination, the patient's forearm is swollen, tense and exquisitely tender to palpation. The patient has developed blisters in the lower aspect of the forearm some of which have burst. The patient hand has decreased sensation and decreased motor. Past History Past Medical History: denies: No medical history Past Surgical History: denies: No surgical history Social history: smoking. denies: alcohol abuse, prescription drug abuse Family history: hypertension Medications and Allergies Allergies Allergy/AdvReac Type Severity Reaction Status Date / Time ibuprofen [From Motrin] Allergy Vomiting Verified 12/18/16 00:40 Home Medications Medication Instructions Recorded Confirmed Last Taken Type Acetaminophen/Codeine [Tylenol 1 tab PO Q6H PRN #12 tab 12/18/16 11/26/18 Unknown Rx /Codeine # 3 tab] Cyclobenzaprine [Flexeril] 10 mg PO QHS PRN #24 tablet 12/18/16 11/26/18 Unknown Rx Active Meds: Active Medications Acetaminophen (Tylenol) 650 mg PO Q4H PRN PRN Reason: Pain MILD(1-3)/Fever >100.5/[place] Last Admin: 11/26/18 20:18 Dose: 650 mg Documented by: Acetaminophen/Hydrocodone Bitart ([place] 5/325) 1 each PO Q6H PRN PRN Reason: Pain, Moderate (4-6) Last Admin: 11/26/18 21:17 Dose: 1 each Documented by: Aspirin (Baby Aspirin) 81 mg PO QDAY [facility] Last Admin: 11/28/18 09:53 Dose: 81 mg Documented by: Atorvastatin Calcium (Lipitor) 80 mg PO QHS [facility] Last Admin: 11/27/18 21:11 Dose: 80 mg Documented by: Clopidogrel Bisulfate (Plavix) 75 mg PO QDAY [facility] Last Admin: 11/28/18 09:51 Dose: 75 mg Documented by: Cyclobenzaprine HCl (Flexeril) 10 mg PO QHS PRN PRN Reason: Muscle Spasm Losartan Potassium (Cozaar) 50 mg PO QDAY [facility] Last Admin: 11/28/18 09:51 Dose: 50 mg Documented by: Metoprolol Tartrate (Lopressor) 50 mg PO BID [facility] Last Admin: 11/28/18 09:54 Dose: 50 mg Documented by: Morphine Sulfate (Morphine) 1 mg IV Q3H PRN PRN Reason: Pain, Moderate (4-6) Last Admin: 11/26/18 13:31 Dose: 1 mg Documented by: Ondansetron HCl (Zofran) 4 mg IV Q8H PRN PRN Reason: N/V unrelieved by Reglan Last Admin: 11/26/18 18:35 Dose: 4 mg Documented by: Spironolactone (Aldactone) 25 mg PO DAILY [facility] Last Admin: 11/28/18 09:51 Dose: 25 mg Documented by: Tramadol HCl (Ultram) 50 mg PO Q4H PRN PRN Reason: Pain, Mild (1-3) Review of Systems All systems: negative Exam - Constitutional Vitals: Temp Pulse Resp BP Pulse Ox 98.5 F 86 16 154/81 96 11/28/18 07:45 11/28/18 10:00 11/28/18 10:00 11/28/18 09:54 11/28/18 10:00 General appearance: Present: no acute distress - EENT Eyes: Present: PERRL, EOM intact ENT: hearing intact - Neck Neck: Present: supple, normal ROM - Respiratory Respiratory effort: normal - Cardiovascular Rhythm: regular - Extremities Extremities: abnormal (per HPI) - Abdominal General gastrointestinal: Present: deferred Female genitourinary: Present: deferred - Rectal Rectal Exam: deferred - Musculoskeletal Musculoskeletal: right sided weakness - Psychiatric Psychiatric: appropriate mood/affect, cooperative Results - Labs CBC & Chem 7: 11/28/18 03:35 11/28/18 03:35 Labs: Abnormal lab results 11/28/18 Range/Units 03:35 Chloride 108.1 H (98-107) mmol/L Creatinine 0.6 L (0.7-1.2) mg/dL Glucose 125 H (65-100) mg/dL Calcium 8.2 L (8.4-10.2) mg/dL Total Creatine Kinase 777 H (30-135) units/L CK-MB (CK-2) 21.4 H (0.0-4.0) ng/mL - Imaging and Cardiology Venous US: report reviewed, image reviewed Assessment and Plan The patient has developed compartment syndrome of her right arm with associated neurological deficit. She will need right forearm fasciotomies today.
--- NOTE | 2018-11-28 13:45 | Progress Note ---
Assessment and Plan 63 y/o obese female admitted with acute [place] s/p PCI 1. BP control 2. Weight loss 3. Anticoagulation 4. Cholesterol control 5. Smoking cessation. Will sign off, call if questions. Subjective Date of service: 11/28/18 Interval history: Transfer out of the unit with no issues. Pulm status is stable. Objective - Constitutional Vitals: Vital Signs - 12hr 11/28/18 11/28/18 11/28/18 03:33 07:45 09:50 Temperature 99.0 F 98.5 F Pulse Rate 82 80 Pulse Rate [ From Monitor] Respiratory 16 18 Rate Blood Pressure 137/80 154/81 O2 Sat by Pulse 99 Oximetry 11/28/18 11/28/18 11/28/18 09:51 09:54 10:00 Temperature Pulse Rate 105 H 105 H Pulse Rate [ 86 From Monitor] Respiratory 16 Rate Blood Pressure 154/81 154/81 O2 Sat by Pulse 96 Oximetry - Labs CBC & Chem 7: 11/28/18 03:35 11/28/18 03:35 Labs: Abnormal lab results 11/28/18 Range/Units 03:35 Chloride 108.1 H (98-107) mmol/L Creatinine 0.6 L (0.7-1.2) mg/dL Glucose 125 H (65-100) mg/dL Calcium 8.2 L (8.4-10.2) mg/dL Total Creatine Kinase 777 H (30-135) units/L CK-MB (CK-2) 21.4 H (0.0-4.0) ng/mL Medications & Allergies - Medications Allergies/Adverse Reactions: Allergies ibuprofen [From Motrin] Allergy (Verified 12/18/16 00:40) Vomiting Home Medications: Home Medications Medication Instructions Recorded Confirmed Last Taken Type Acetaminophen/Codeine [Tylenol 1 tab PO Q6H PRN #12 tab 12/18/16 11/26/18 Unknown Rx /Codeine # 3 tab] Cyclobenzaprine [Flexeril] 10 mg PO QHS PRN #24 tablet 12/18/16 11/26/18 Unknown Rx Active Medications: Generic Name Dose Route Start Last Admin Trade Name Freq PRN Reason Stop Dose Admin Acetaminophen 650 mg 11/26/18 15:44 11/26/18 20:18 Tylenol PO 650 mg Q4H PRN Administration Pain MILD(1-3)/Fever >100.5/[place] Acetaminophen/Hydrocodone Bitart 1 each 11/26/18 07:46 11/26/18 21:17 [place] 5/325 PO 1 each Q6H PRN Administration Pain, Moderate (4-6) Aspirin 81 mg 11/27/18 10:00 11/28/18 09:53 Baby Aspirin PO 81 mg QDAY TATA Administration Atorvastatin Calcium 80 mg 11/26/18 22:00 11/27/18 21:11 Lipitor PO 80 mg QHS TATA Administration Clopidogrel Bisulfate 75 mg 11/27/18 10:00 11/28/18 09:51 Plavix PO 75 mg QDAY TATA Administration Cyclobenzaprine HCl 10 mg 11/26/18 15:43 Flexeril PO QHS PRN Muscle Spasm Losartan Potassium 50 mg 11/28/18 10:00 11/28/18 09:51 Cozaar PO 50 mg QDAY TATA Administration Metoprolol Tartrate 50 mg 11/26/18 10:00 11/28/18 09:54 Lopressor PO 50 mg BID TATA Administration Morphine Sulfate 1 mg 11/26/18 10:17 11/26/18 13:31 Morphine IV 1 mg Q3H PRN Administration Pain, Moderate (4-6) Ondansetron HCl 4 mg 11/26/18 18:15 11/26/18 18:35 Zofran IV 4 mg Q8H PRN Administration N/V unrelieved by Christoph Spironolactone 25 mg 11/26/18 10:00 11/28/18 09:51 Aldactone PO 25 mg DAILY TATA Administration Tramadol HCl 50 mg 11/26/18 07:46 Ultram PO Q4H PRN Pain, Mild (1-3)
--- NOTE | 2018-11-28 14:58 | Anesthesia Day of Surgery ---
Anesthesia Day of Surgery - Day of Surgery Patient Examined: Yes Patient H&P Reviewed: Yes Patient is NPO: Yes
--- NOTE | 2018-11-28 14:58 | Anesthesia Consultation ---
Anesthesia Consult and Med Hx Date of service: 11/28/18 - Airway Anesthetic Teeth Evaluation: Poor ROM Head & Neck: Adequate Mental/Hyoid Distance: Adequate Mallampati Class: Class III Intubation Access Assessment: Probably Good - Pulmonary Exam CTA: Yes - Cardiac Exam Cardiac Exam: RRR - Pre-Operative Health Status ASA Pre-Surgery Classification: ASA4, Emergency Proposed Anesthetic Plan: General (S/P Mi with LAD stent for emergency fasciotomy ), MAC - Pulmonary Hx Smoking: No Hx Asthma: No SOB: No COPD: No Hx Pneumonia: No Hx Sleep Apnea: No - Cardiovascular System Hx Hypertension: Yes (unknown) Hx Coronary Artery Disease: No Hx Heart Attack/AMI: No Hx Angina: No Hx Percutaneous Transluminal Coronary Angioplasty (PTCA): No Hx Pacemaker: No Hx Internal Defibrillator: No Hx Valvular Heart Disease: No Hx Heart Murmur: No Hx Peripheral Vascular Disease: No - Central Nervous System Hx Seizures: No CVA: No Hx Back Pain: No Hx Psychiatric Problems: No - Gastrointestinal Hx Ulcer: No - Endocrine Hx Renal Disease: No Hx End Stage Renal Disease: No Hx Cirrhosis: No Hx Liver Disease: No Hx Hypothyroidism: No Hx Hyperthyroidism: No - Hematic Hx Anemia: No Hx Sickle Cell Disease: No - Other Systems Hx Alcohol Use: Yes (occas bottle of wine) Hx Substance Use: No Hx Cancer: No Hx Obesity: No
[2018-11-28] MEDS ORDERED: AMIDATE IV ONE (15:00)
[2018-11-28] MEDS ORDERED: KETALAR ONE (15:10)
[2018-11-28] MEDS ORDERED: SUBLIMAZE ONE (15:10)
[2018-11-28] MEDS ORDERED: DIPRIVAN 10 MG/ML IV ONE (15:10)
[2018-11-28] MEDS ORDERED: XYLOCAINE MPF 2% ONE (15:14)
--- NOTE | 2018-11-28 15:48 | XRay Report ---
CHEST 1 VIEW INDICATION: Acute respiratory failure. COMPARISON: Yesterday FINDINGS: Support devices: None. Heart: Stable cardiomegaly. Lungs/Pleura: Minimal edema with no effusion.. Additional findings: None. IMPRESSION: 1. Stable cardiomegaly with minimal edema. Signer Name: Ino Hill MD Signed: 11/27/2018 3:18 AM Workstation Name: [id number]
[2018-11-28] MEDS ORDERED: LACTATED RINGERS 1,000 ML IV SCH (16:00)
[2018-11-28] MEDS ORDERED: HEPARIN 10,000 UNITS/10 ML IR ONE (16:15)
[2018-11-28] MEDS ORDERED: NACL 0.9% IR ONE (16:15)
[2018-11-28] MEDS ORDERED: NACL 0.9% 500 ML IRRIGATION ONE (16:15)
[2018-11-28] MEDS ORDERED: HEPARIN 10,000 UNITS/10 ML ONE (16:40)
[2018-11-28] MEDS ORDERED: NACL 0.9% 1000 ML 1,000 ML ONE (16:40)
[2018-11-28] MEDS ORDERED: ANCEF/STERILE WATER 2 GM/20 ML IV NR (17:00)
--- NOTE | 2018-11-28 17:53 | Operative Report ---
Operative Report Operative Report: Date of Procedure: 11/28/2018 Pre-operative Diagnosis: Right Forearm Compartment Syndrome Post-operative Diagnosis: Same Procedure(s): 1. Right Arm Volar Fasciotomy Of the Superficial And Deep Compartments With Release of the Carpal Tunnel and Application of Burak's Ladder for Partial Wound Closure 2. Ligation of the Distal Radial Artery Surgeon: Jordi Chung M.D. Child Development Director: None Anesthesia: General Endotracheal Anesthesia EBL: 200 mL Counts: Correct Complications: None Condition: Stable Findings: Distal right radial artery with near total transection. All muscle was viable. Muscle bulged with release of the compartments and the incision was unable to be primarily closed primarily. Specimen: None Indication: The patient is a 63-year-old female who recently underwent PCI through a right wrist approach. Shortly after she developed swelling and ecchymosis of the right arm with complaints of numbness and decreased motor of the right hand. She then developed blistering of the right forearm and had clinical symptoms of compartment syndrome. She is in need of decompression of her volar compartments of her right forearm. She was given the risk, benefits, and alternative procedures and consented to the procedure. Description of Procedure: The patient was brought to the operating room and laid in supine position. After general endotracheal anesthesia was achieved her right arm was prepped and draped in normal sterile fashion. A lazy S incision was made on the volar aspect of her right arm extending from the medial aspect of her upper arm, just above the antecubital crease, then in a transverse course across the antecubital crease coursing back longitudinally down the arm and then slightly across the distal palm. Cautery was then used to continue the incision down to the level of the fascia. Because the patient was on a significant amount of antiplatelet therapy for her recent PCI cautery was used to achieve hemostasis throughout the dissection. Once the fascia was identified cautery was used to create tissue flaps on each side of the incision. I then used curved Mayos to incise the fascia and released the superficial volar compartment. Upon releasing the superficial compartment the muscle did bulge. I explored the muscle and did not find any evidence of a significant hematoma. All muscle was found to be viable. I then released the fascia of the deep compartment and explored the muscle which also was under tension and bulge. Almost was found to be healthy and viable. There was no obvious fluid collection although there was some hematoma. I then released the transverse carpal ligament and upon releasing the ligament I noted a significant amount of arterial bleeding. Upon exploring the bleeding I discovered the radial artery with near total transection with approximately 80% transection of the artery. Upon gaining control of the artery it was obviously not salvageable so I ligated the artery with clips. Upon clip in the artery there was no further bleeding. Further hemostasis within the wound was achieved with a combination of cautery and quick clot. Once hemostasis within the wound was achieved I copiously irrigated the wound and additional hemostasis was achieved with manual pressure. Once hemostasis was achieved it was obvious that there was too much muscle edema for the skin to be closed primarily at this time. I decided to place a Burak's Ladder to reapproximate the skin edges as closely as possible and possibly bring the skin edges closer at the bedside with the plan to possibly plan for primary closure next week. I placed michelle on the skin edges and then used Vesseloops with a knot on each and and weaved them back and forth, similar to shoelaces, to reapproximate the skin edges as closely as possible. This also provided coverage of the brachial artery which would have been exposed had I not pulled the skin edges close to each other. I then placed Xeroform gauze over the exposed muscle as well as the blistered skin and then dressed the wound with fluffs, ABD pads, Kerlix roll, and a 4 inch Edward bandage. The patient tolerated the procedure well. All sponge, needle, and instrument counts were correct. The patient was taken to the recovery area in stable condition.
--- NOTE | 2018-11-28 18:02 | Event Note ---
Date: 11/28/18 Patient is off the floor, the surgical procedure ,in OR
[2018-11-28] MEDS: DILAUDID IV PRN ×4 (18:03→18:31)
--- NOTE | 2018-11-28 18:51 | Post Anesthesia Evaluation ---
- Post Anesthesia Evaluation Patient Participated: Yes Airway Patent: Yes Stable Respiratory Function: Yes Nausea/Vomiting: No Temp > 96.8F: Yes Pain Manageable: Yes Adequeate Hydration: Yes Anesthesia Complications: No Block Receding Appropriately: Not Applicable Patient on Ventilator: No
[2018-11-28] MEDS: MORPHINE IV PRN (21:05)
[2018-11-29] MEDS: MORPHINE IV PRN ×3 (01:50→16:12)
[2018-11-29] MEDS: NORCO 7.5/325 PO PRN ×3 (02:56→22:07)
[2018-11-29 05:33] LABS: Basophils % (Auto) 0.2 % (0.0-1.8); Eosinophils # (Auto) 0.1 K/mm3 (0.0-0.4); Eosinophils % (Auto) 1.1 % (0.0-4.3); Hematocrit 36.9 % (30.3-42.9); Hemoglobin 12.5 gm/dl (10.1-14.3); Lymphocytes # (Auto) 1.5 K/mm3 (1.2-5.4); Lymphocytes % (Auto) 15.9 % (13.4-35.0); Mean Corpuscular HGB Conc 34 % (30-34); Mean Corpuscular Volume 95 fl (79-97); Monocytes # (Auto) 0.9 K/mm3 (0.0-0.8); Platelet Count 212 K/mm3 (140-440); Red Blood Count 3.89 M/mm3 (3.65-5.03); Red Cell Distribution Width 14.3 % (13.2-15.2)
[2018-11-29 05:51] LABS: BUN/Creatinine Ratio 15; Blood Urea Nitrogen 9 mg/dL (7-17); Calcium 8.5 mg/dL (8.4-10.2); Hemolysis Index 3
[2018-11-29] MEDS: BABY ASPIRIN PO SCH (09:11)
[2018-11-29] MEDS: COZAAR PO SCH (09:11)
[2018-11-29] MEDS: ALDACTONE PO SCH (09:11)
[2018-11-29] MEDS: PLAVIX PO SCH (09:11)
[2018-11-29] MEDS: LOPRESSOR PO SCH ×2 (09:11→22:07)
--- NOTE | 2018-11-29 10:57 | Progress Note ---
Assessment and Plan The patient is stable from a cardiac standpoint. Continue Plavix and aspirin. Further recommendations per surgery. The patient has been seen in conjunction with Dr. Alberts, who agrees with assessment and plan. - Patient Problems (1) Acute combined systolic and diastolic ACC/AHA stage C congestive heart fail ure Current Visit: No Status: Acute (2) Compartment syndrome of forearm Current Visit: Yes Status: Acute (3) Hyperlipemia, mixed Current Visit: No Status: Chronic (4) Smoker Current Visit: No Status: Chronic (5) STEMI (ST elevation myocardial infarction) Current Visit: Yes Status: Resolved Subjective Date of service: 11/29/18 Interval history: The patient is sitting up in bed, eating breakfast. She is s/p RUE fasciotomy, which is painful today. She is in sinus rhythm with rates in the 70s. Objective Last Vital Signs Temp 98.2 F 11/29/18 07:33 Pulse 67 11/29/18 03:40 Resp 18 11/29/18 07:33 BP 148/72 11/29/18 07:33 Pulse Ox 99 11/29/18 03:40 - Physical Examination General: No Apparent Distress HEENT: Positive: PERRL, Mucus Membranes Moist Neck: Positive: neck supple, trachea midline Cardiac: Positive: Reg Rate and Rhythm Lungs: Positive: Normal Exam Neuro: Positive: Grossly Intact Abdomen: Positive: Unremarkable, Soft, Active Bowel Sounds. Negative: Tender, Distended /Rectal: Other (deferred) Skin: Positive: Clear, Other (s/p RUE fasciotomy - surgical dressing c/d/i) Incision: Cardiac Cath Site (s/p RUE fasciotomy. Surgical dressing is c/d/i.) Musculoskeletal: No Pain, Normal Range of Motion, other (RUE pain) Extremities: Present: normal, edema (RUE), Other (RUE is s/p fasciotomy. Surgical dressing in place. ) - Labs and Meds CBC 11/29/18 Range/Units 04:51 WBC 9.7 (4.5-11.0) K/mm3 RBC 3.89 (3.65-5.03) M/mm3 Hgb 12.5 (10.1-14.3) gm/dl Hct 36.9 (30.3-42.9) % Plt Count 212 (140-440) K/mm3 Lymph # 1.5 (1.2-5.4) K/mm3 [place] # 0.9 H (0.0-0.8) K/mm3 Eos # 0.1 (0.0-0.4) K/mm3 Baso # 0.0 (0.0-0.1) K/mm3 Comprehensive Metabolic Panel 11/29/18 Range/Units 04:51 Sodium 138 (137-145) mmol/L Potassium 4.2 (3.6-5.0) mmol/L Chloride 100.8 (98-107) mmol/L Carbon Dioxide 30 (22-30) mmol/L BUN 9 (7-17) mg/dL Creatinine 0.6 L (0.7-1.2) mg/dL Glucose 115 H (65-100) mg/dL Calcium 8.5 (8.4-10.2) mg/dL - Imaging and Cardiology Cardiac cath: report reviewed (Left heart cath revealed left main patent LAD proximal 100% circumflex patent obtuse marginal 1 and obtuse marginal 2. RCA moderate severe tortuosity. Mild luminal irregularities. moderate LV dysfunction anterior wall hypokinesis EF 35%. PCI of the LAD with a drug- eluting resolution on next 3.5 x 18 mm postdilated with a 4.0 by 12 restoring DOMINIK-3 flow ) - Telemetry EKG Rhythm: Sinus Rhythm
--- NOTE | 2018-11-29 16:43 | Progress Note ---
Assessment and Plan 63-year-old female with right upper extremity compartment syndrome due to complicated access of the radial artery requiring radial artery ligation and fasciotomies. Postoperative day 1. Minimal strikethrough bleeding. Patient is doing well. Appears to have full hand function. Cannot completely flex her fingers due to forearm pain. Sensory function intact. No hand pain. Forearm pain at the incision sites. Patient will likely need closure, which may be performed sometime this upcoming week, possibly Monday. Subjective Date of service: 11/29/18 Interval history: Status post right upper extremity arm fasciotomy. Motor function appears fully intact. She cannot completely squeeze her hand but this is due to underlying pain in her forearm (likely from fasciotomies). Sensory function completely intact in the hand. Capillary refill less than 2 in each digit with warm hand equal in warmth to her other hand. Objective - Constitutional Vitals: Vital Signs - 12hr 11/29/18 07:33 Temperature 98.2 F Respiratory 18 Rate Blood Pressure 148/72 General appearance: Present: no acute distress - EENT Eyes: EOM intact ENT: hearing intact Extremities: abnormal (see subjective) - Psychiatric Psychiatric: appropriate mood/affect, cooperative - Labs CBC & Chem 7: 11/29/18 04:51 11/29/18 04:51 Labs: Abnormal lab results 11/29/18 11/29/18 Range/Units 04:51 04:51 [place] % (Auto) 9.0 H (0.0-7.3) % [place] # 0.9 H (0.0-0.8) K/mm3 Seg Neutrophils % 73.8 H (40.0-70.0) % Creatinine 0.6 L (0.7-1.2) mg/dL Glucose 115 H (65-100) mg/dL Medications & Allergies - Medications Allergies/Adverse Reactions: Allergies ibuprofen [From Motrin] Allergy (Verified 12/18/16 00:40) Vomiting Home Medications: Home Medications Medication Instructions Recorded Confirmed Last Taken Type Acetaminophen/Codeine [Tylenol 1 tab PO Q6H PRN #12 tab 12/18/16 11/26/18 Unknown Rx /Codeine # 3 tab] Cyclobenzaprine [Flexeril] 10 mg PO QHS PRN #24 tablet 12/18/16 11/26/18 Unknown Rx Active Medications: Generic Name Dose Route Start Last Admin Trade Name Freq PRN Reason Stop Dose Admin Acetaminophen 650 mg 11/26/18 15:44 11/26/18 20:18 Tylenol PO 650 mg Q4H PRN Administration Pain MILD(1-3)/Fever >100.5/[place] Acetaminophen/Hydrocodone Bitart 1 each 11/28/18 17:54 11/29/18 11:13 [place] 7.5/325 PO 1 each Q4H PRN Administration Pain, Moderate (4-6) Aspirin 81 mg 11/27/18 10:00 11/29/18 09:11 Baby Aspirin PO 81 mg QDAY TATA Administration Atorvastatin Calcium 80 mg 11/26/18 22:00 11/28/18 21:03 Lipitor PO 80 mg QHS TATA Administration Clopidogrel Bisulfate 75 mg 11/27/18 10:00 11/29/18 09:11 Plavix PO 75 mg QDAY TATA Administration Cyclobenzaprine HCl 10 mg 11/26/18 15:43 Flexeril PO QHS PRN Muscle Spasm Losartan Potassium 50 mg 11/28/18 10:00 11/29/18 09:11 Cozaar PO 50 mg QDAY TATA Administration Metoprolol Tartrate 50 mg 11/26/18 10:00 11/29/18 09:11 Lopressor PO 50 mg BID TATA Administration Morphine Sulfate 3 mg 11/28/18 17:54 11/29/18 16:12 Morphine IV 3 mg Q3H PRN Administration Pain , Severe (7-10) Ondansetron HCl 4 mg 11/26/18 18:15 11/26/18 18:35 Zofran IV 4 mg Q8H PRN Administration N/V unrelieved by Christoph Spironolactone 25 mg 11/26/18 10:00 11/29/18 09:11 Aldactone PO 25 mg DAILY TATA Administration
--- NOTE | 2018-11-29 20:00 | Progress Note ---
Assessment and Plan Assessment and plan: --Right arm compartment syndrome associated with neurological deficit; S/P: forearm fasciotomies superficial and deep compartments with release of carpal tunnel and application of Chen Ladders for partial wound closure and ligation of distal radial artery 11/28/18. Complaints of some pain, the arm is in the sling, continue supportive care pain management IR/vascular following --STEMI (ST elevation myocardial infarction) ST elevation (STEMI) myocardial infarction involving left anterior descending coronary artery - s/p KHURRAM Dual antiplatelet therapy, beta blockers RAMANDEEP inhibitor's nitrates and statins cardiology following --Acute combined systolic and diastolic ACC/AHA stage C congestive heart failure likely from acute STEMI, Ef on cath 35%, cardiology following on Nitro and aggrstat drip, discontinued this morning ECHO:Moderate LVH, ejection fraction 40% -- Hyperlipemia, mixed, cont statin --Tobacco abuse, smoking cessation counselled, nicotine patch as needed --Obesity, diet regimen and weight reduction when clinically stable --Hypokalemia, replaced --Dvt Px, SCDs --Monitor closely and adjust management as needed Disposition; follow cardiology, vascular/IR recommendations Discharge when medically stable Brief History; Patient was admitted with ST elevation CT status post PCI, developed right arm compartment syndrome status post fasciotomies on 11/28/2018, cardiology, vascular/IR following. History Interval history: Patient Seen and examined this morning medical records reviewed Patient had a right arm compartment syndrome ,underwent fasciotomies yesterday Patient complains of some pain in the right arm Denies chest pain or shortness of breath Vital signs noted Hospitalist Physical - Constitutional Vitals: Temp Pulse Resp BP Pulse Ox 99.1 F 82 16 119/58 94 11/29/18 19:20 11/29/18 19:20 11/29/18 19:20 11/29/18 19:20 11/29/18 19:20 General appearance: Present: no acute distress, well-nourished, obese - EENT Eyes: Present: PERRL, EOM intact - Neck Neck: Present: supple, normal ROM - Respiratory Respiratory effort: normal Respiratory: bilateral: diminished, negative: rales, rhonchi, wheezing - Cardiovascular Rhythm: regular Heart Sounds: Present: S1 & S2 - Extremities Extremities: abnormal (right arm swelling, erythema and tenderness, dressing, in sling) Extremity abnormal: edema, erythema - Abdominal General gastrointestinal: soft, non-tender, non-distended, normal bowel sounds - Integumentary Integumentary: Present: clear, warm - Psychiatric Psychiatric: appropriate mood/affect, cooperative - Neurologic Neurologic: CNII-XII intact, moves all extremities Results - Labs CBC & Chem 7: 11/29/18 04:51 11/29/18 04:51 Labs: Laboratory Last Values WBC 9.7 K/mm3 (4.5-11.0) 11/29/18 04:51 RBC 3.89 M/mm3 (3.65-5.03) 11/29/18 04:51 Hgb 12.5 gm/dl (10.1-14.3) 11/29/18 04:51 Hct 36.9 % (30.3-42.9) 11/29/18 04:51 MCV 95 fl (79-97) 11/29/18 04:51 MCH 32 pg (28-32) 11/29/18 04:51 MCHC 34 % (30-34) 11/29/18 04:51 RDW 14.3 % (13.2-15.2) 11/29/18 04:51 Plt Count 212 K/mm3 (140-440) 11/29/18 04:51 Lymph % (Auto) 15.9 % (13.4-35.0) 11/29/18 04:51 [place] % (Auto) 9.0 % (0.0-7.3) H 11/29/18 04:51 Eos % (Auto) 1.1 % (0.0-4.3) 11/29/18 04:51 Baso % (Auto) 0.2 % (0.0-1.8) 11/29/18 04:51 Lymph # 1.5 K/mm3 (1.2-5.4) 11/29/18 04:51 [place] # 0.9 K/mm3 (0.0-0.8) H 11/29/18 04:51 Eos # 0.1 K/mm3 (0.0-0.4) 11/29/18 04:51 Baso # 0.0 K/mm3 (0.0-0.1) 11/29/18 04:51 Seg Neutrophils % 73.8 % (40.0-70.0) H 11/29/18 04:51 Seg Neutrophils # 7.2 K/mm3 (1.8-7.7) 11/29/18 04:51 PT 12.3 Sec. (12.2-14.9) 11/26/18 06:05 INR 0.94 (0.87-1.13) 11/26/18 06:05 APTT 21.3 Sec. (24.2-36.6) L 11/26/18 06:05 323 (74-137) H 11/26/18 07:13 Sodium 138 mmol/L (137-145) 11/29/18 04:51 Potassium 4.2 mmol/L (3.6-5.0) 11/29/18 04:51 Chloride 100.8 mmol/L (98-107) 11/29/18 04:51 Carbon Dioxide 30 mmol/L (22-30) 11/29/18 04:51 11 mmol/L 11/29/18 04:51 BUN 9 mg/dL (7-17) 11/29/18 04:51 0.6 mg/dL (0.7-1.2) L 11/29/18 04:51 Estimated GFR > 60 ml/min 11/29/18 04:51 15 % 11/29/18 04:51 Glucose 115 mg/dL (65-100) H 11/29/18 04:51 POC Glucose 131 (70-105) H 11/27/18 10:50 Calcium 8.5 mg/dL (8.4-10.2) 11/29/18 04:51 777 units/L (30-135) H 11/28/18 03:35 CK-MB (CK-2) 21.4 ng/mL (0.0-4.0) H 11/28/18 03:35 CK-MB (CK-2) Rel Index 2.7 (0-4) 11/28/18 03:35 2.740 ng/mL (0.00-0.029) H* 11/27/18 11:21 Triglycerides 55 mg/dL (2-149) 11/26/18 06:05 Cholesterol 143 mg/dL (50-199) 11/26/18 06:05 92 mg/dL (50-130) 11/26/18 06:05 61 mg/dL (40-59) H 11/26/18 06:05 2.34 % 11/26/18 06:05 Blood Type O POSITIVE 11/26/18 06:05 Antibody Screen Negative 11/26/18 06:05 Active Medications - Current Medications Current Medications: Generic Name Dose Route Start Last Admin Trade Name Freq PRN Reason Stop Dose Admin Acetaminophen 650 mg 11/26/18 15:44 11/26/18 20:18 Tylenol PO 650 mg Q4H PRN Administration Pain MILD(1-3)/Fever >100.5/[place] Acetaminophen/Hydrocodone Bitart 1 each 11/28/18 17:54 11/29/18 11:13 [place] 7.5/325 PO 1 each Q4H PRN Administration Pain, Moderate (4-6) Aspirin 81 mg 11/27/18 10:00 11/29/18 09:11 Baby Aspirin PO 81 mg QDAY TATA Administration Atorvastatin Calcium 80 mg 11/26/18 22:00 11/28/18 21:03 Lipitor PO 80 mg QHS TATA Administration Clopidogrel Bisulfate 75 mg 11/27/18 10:00 11/29/18 09:11 Plavix PO 75 mg QDAY TATA Administration Cyclobenzaprine HCl 10 mg 11/26/18 15:43 Flexeril PO QHS PRN Muscle Spasm Losartan Potassium 50 mg 11/28/18 10:00 11/29/18 09:11 Cozaar PO 50 mg QDAY TATA Administration Metoprolol Tartrate 50 mg 11/26/18 10:00 11/29/18 09:11 Lopressor PO 50 mg BID TATA Administration Morphine Sulfate 3 mg 11/28/18 17:54 11/29/18 16:12 Morphine IV 3 mg Q3H PRN Administration Pain , Severe (7-10) Ondansetron HCl 4 mg 11/26/18 18:15 11/26/18 18:35 Zofran IV 4 mg Q8H PRN Administration N/V unrelieved by Christoph Spironolactone 25 mg 11/26/18 10:00 11/29/18 09:11 Aldactone PO 25 mg DAILY TATA Administration
[2018-11-30] MEDS: MORPHINE IV PRN ×3 (03:34→21:21)
[2018-11-30 06:20] LABS: Basophils % (Auto) 0.3 % (0.0-1.8); Eosinophils # (Auto) 0.2 K/mm3 (0.0-0.4); Eosinophils % (Auto) 2.9 % (0.0-4.3); Hematocrit 36.4 % (30.3-42.9); Hemoglobin 12.3 gm/dl (10.1-14.3); Lymphocytes # (Auto) 1.6 K/mm3 (1.2-5.4); Lymphocytes % (Auto) 22.4 % (13.4-35.0); Mean Corpuscular HGB Conc 34 % (30-34); Mean Corpuscular Volume 95 fl (79-97); Monocytes # (Auto) 0.7 K/mm3 (0.0-0.8); Monocytes % (Auto) 9.2 % (0.0-7.3); Platelet Count 227 K/mm3 (140-440); Red Blood Count 3.83 M/mm3 (3.65-5.03); Red Cell Distribution Width 14.2 % (13.2-15.2)
[2018-11-30 06:33] LABS: Alanine Aminotransferase 19 units/L (7-56); Albumin 2.9 g/dL (3.9-5); BUN/Creatinine Ratio 15; Blood Urea Nitrogen 9 mg/dL (7-17); Calcium 8.5 mg/dL (8.4-10.2); Hemolysis Index 7
--- NOTE | 2018-11-30 09:48 | Event Note ---
Date: 11/30/18 c/o right arm pain right arm dressing intact. mild bleeding noted at upper margin of dressing no cp or sob chest clear cor rrr abd soft Imp: ant stemi. s/p successful pci lad compartment synd rt arm s/p fasciotomy plan: present cardiac mgt. per vasc surgery
[2018-11-30] MEDS: LOPRESSOR PO SCH ×2 (09:58→21:22)
[2018-11-30] MEDS: BABY ASPIRIN PO SCH (09:58)
[2018-11-30] MEDS: PLAVIX PO SCH (09:58)
[2018-11-30] MEDS: ALDACTONE PO SCH (09:59)
[2018-11-30] MEDS: COZAAR PO SCH (09:59)
[2018-11-30] MEDS: NORCO 7.5/325 PO PRN ×2 (10:03→22:34)
--- NOTE | 2018-11-30 11:38 | Progress Note ---
Assessment and Plan The patient currently has an open incision from the fasciotomy in her upper arm with a Burak's ladder closure. We will continue to evaluate the patient, hopefully, the incision will be a surgically closed on Monday after which the patient may be discharged. Subjective Date of service: 11/30/18 Principal diagnosis: acute GA Interval history: Patient with a history of acute GA status post right forearm fasciotomy. Dressings were changed today. The fasciotomy incision is clean, dry and intact. There was previously drainage on the patient's prior bandage. The upper portion of the fasciotomy has loosened significantly. The lower portion of the fasciotomy has loosened somewhat. The forearm is soft. Patient has increased pantograph watcher strength and has had a return to her baseline and station in her hand. A component of her decreased pantograph watcher strength is secondary to the bandage and patient's arm motion. No significant complaints of pain. Objective - Constitutional Vitals: Vital Signs - 12hr 11/30/18 11/30/18 11/30/18 03:34 03:53 08:34 Temperature 98.6 F 99.3 F Pulse Rate 65 69 Respiratory 18 20 18 Rate Blood Pressure 164/75 148/91 O2 Sat by Pulse 97 97 Oximetry 11/30/18 11/30/18 09:58 09:59 Temperature Pulse Rate 108 H 108 H Respiratory Rate Blood Pressure 148/91 148/91 O2 Sat by Pulse Oximetry General appearance: Present: no acute distress - EENT Eyes: EOM intact ENT: hearing intact - Neck Neck: supple, normal ROM - Respiratory Respiratory effort: normal - Breasts Breasts: deferred Extremities: abnormal - Gastrointestinal General gastrointestinal: Present: deferred Rectal Exam: deferred - Genitourinary Female genitourinary: deferred - Psychiatric Psychiatric: appropriate mood/affect, cooperative - Labs CBC & Chem 7: 11/30/18 05:55 11/30/18 05:55 Labs: Abnormal lab results 11/30/18 11/30/18 Range/Units 05:55 05:55 [place] % (Auto) 9.2 H (0.0-7.3) % Creatinine 0.6 L (0.7-1.2) mg/dL Glucose 123 H (65-100) mg/dL Total Creatine Kinase 287 H (30-135) units/L Total Protein 5.6 L (6.3-8.2) g/dL Albumin 2.9 L (3.9-5) g/dL Medications & Allergies - Medications Allergies/Adverse Reactions: Allergies ibuprofen [From Motrin] Allergy (Verified 12/18/16 00:40) Vomiting Home Medications: Home Medications Medication Instructions Recorded Confirmed Last Taken Type Acetaminophen/Codeine [Tylenol 1 tab PO Q6H PRN #12 tab 12/18/16 11/26/18 Unknown Rx /Codeine # 3 tab] Cyclobenzaprine [Flexeril] 10 mg PO QHS PRN #24 tablet 12/18/16 11/26/18 Unknown Rx Active Medications: Generic Name Dose Route Start Last Admin Trade Name Freq PRN Reason Stop Dose Admin Acetaminophen 650 mg 11/26/18 15:44 11/26/18 20:18 Tylenol PO 650 mg Q4H PRN Administration Pain MILD(1-3)/Fever >100.5/[place] Acetaminophen/Hydrocodone Bitart 1 each 11/28/18 17:54 11/30/18 10:03 [place] 7.5/325 PO 1 each Q4H PRN Administration Pain, Moderate (4-6) Aspirin 81 mg 11/27/18 10:00 11/30/18 09:58 Baby Aspirin PO 81 mg QDAY TAAT Administration Atorvastatin Calcium 80 mg 11/26/18 22:00 11/29/18 22:07 Lipitor PO 80 mg QHS TATA Administration Clopidogrel Bisulfate 75 mg 11/27/18 10:00 11/30/18 09:58 Plavix PO 75 mg QDAY TATA Administration Cyclobenzaprine HCl 10 mg 11/26/18 15:43 Flexeril PO QHS PRN Muscle Spasm Losartan Potassium 50 mg 11/28/18 10:00 11/30/18 09:59 Cozaar PO 50 mg QDAY TATA Administration Metoprolol Tartrate 50 mg 11/26/18 10:00 11/30/18 09:58 Lopressor PO 50 mg BID TATA Administration Morphine Sulfate 3 mg 11/28/18 17:54 11/30/18 03:34 Morphine IV 3 mg Q3H PRN Administration Pain , Severe (7-10) Ondansetron HCl 4 mg 11/26/18 18:15 11/26/18 18:35 Zofran IV 4 mg Q8H PRN Administration N/V unrelieved by Christoph Spironolactone 25 mg 11/26/18 10:00 11/30/18 09:59 Aldactone PO 25 mg DAILY TATA Administration
--- NOTE | 2018-11-30 13:13 | Progress Note ---
Assessment and Plan /Right arm compartment syndrome associated with neurological deficit; S/P: forearm fasciotomies superficial and deep compartments with release of carpal tunnel and application of Chen Ladders for partial wound closure and ligation of distal radial artery 11/28/18. Complaints of some pain, the arm is in the sling, continue supportive care pain management IR/vascular following - plan to close the wound on Monday /STEMI (ST elevation myocardial infarction) ST elevation (STEMI) myocardial infarction involving left anterior descending coronary artery - s/p KHURRAM Dual antiplatelet therapy, beta blockers RAMANDEEP inhibitor's nitrates and statins cardiology following /-Acute combined systolic and diastolic ACC/AHA stage C congestive heart failure likely from acute STEMI, Ef on cath 35%, cardiology following on Nitro and aggrstat drip, discontinued this morning ECHO:Moderate LVH, ejection fraction 40% / Hyperlipemia, mixed, cont statin /Tobacco abuse, smoking cessation counselled, nicotine patch as needed /-Obesity, diet regimen and weight reduction when clinically stable /Hypokalemia, replaced /Dvt Px, SCDs /Monitor closely and adjust management as needed Disposition; follow cardiology, vascular/IR recommendations Discharge when medically stable Brief History; Patient was admitted with ST elevation [place] status post PCI, developed right arm compartment syndrome status post fasciotomies on 11/28/2018, cardiology, vascular/IR following. Hospitalist Physical General appearance: Present: no acute distress, well-nourished, obese - EENT Eyes: Present: PERRL, EOM intact - Neck Neck: Present: supple, normal ROM - Respiratory Respiratory effort: normal Respiratory: bilateral: diminished, negative: rales, rhonchi, wheezing - Cardiovascular Rhythm: regular Heart Sounds: Present: S1 & S2 - Extremities Extremities: abnormal (right arm swelling, erythema and tenderness, dressing ) Extremity abnormal: edema, erythema - Abdominal General gastrointestinal: soft, non-tender, non-distended, normal bowel sounds - Integumentary Integumentary: Present: clear, warm - Psychiatric Psychiatric: appropriate mood/affect, cooperative - Neurologic Neurologic: CNII-XII intact, moves all extremities Subjective Date of service: 11/30/18 Principal diagnosis: acute [place] Interval history: Patient Seen and examined this morning medical records reviewed Patient complains of some pain in the right arm Denies chest pain or shortness of breath Vital signs noted Objective - Constitutional Vitals: Vital Signs - 12hr 11/30/18 11/30/18 11/30/18 03:34 03:53 08:34 Temperature 98.6 F 99.3 F Pulse Rate 65 69 Respiratory 18 20 18 Rate Blood Pressure 164/75 148/91 O2 Sat by Pulse 97 97 Oximetry 11/30/18 11/30/18 11/30/18 09:58 09:59 10:00 Temperature Pulse Rate 108 H 108 H 71 Respiratory Rate Blood Pressure 148/91 148/91 O2 Sat by Pulse Oximetry 11/30/18 12:00 Temperature 99.6 F Pulse Rate 71 Respiratory 18 Rate Blood Pressure 127/62 O2 Sat by Pulse 95 Oximetry - Labs CBC & Chem 7: 11/30/18 05:55 11/30/18 05:55 Labs: Abnormal lab results 11/30/18 11/30/18 Range/Units 05:55 05:55 [place] % (Auto) 9.2 H (0.0-7.3) % Creatinine 0.6 L (0.7-1.2) mg/dL Glucose 123 H (65-100) mg/dL Total Creatine Kinase 287 H (30-135) units/L Total Protein 5.6 L (6.3-8.2) g/dL Albumin 2.9 L (3.9-5) g/dL
[2018-11-30] MEDS: FLEXERIL PO PRN (22:34)
[2018-12-01] MEDS: COZAAR PO SCH (09:17)
[2018-12-01] MEDS: ALDACTONE PO SCH (09:17)
[2018-12-01] MEDS: LOPRESSOR PO SCH ×2 (09:17→21:17)
[2018-12-01] MEDS: PLAVIX PO SCH (09:17)
[2018-12-01] MEDS: BABY ASPIRIN PO SCH (09:17)
[2018-12-01] MEDS: MORPHINE IV PRN ×2 (09:18→19:16)
--- NOTE | 2018-12-01 10:08 | Progress Note ---
Assessment and Plan The patient is stable from a cardiac standpoint. Continue current management. She is scheduled for a wound closure on Monday. The patient was evaluated by Dr. Alberst, who developed the assessment and plan. - Patient Problems (1) Acute combined systolic and diastolic ACC/AHA stage C congestive heart failure Current Visit: No Status: Acute (2) Compartment syndrome of forearm Current Visit: Yes Status: Acute (3) Hyperlipemia, mixed Current Visit: No Status: Chronic (4) Smoker Current Visit: No Status: Chronic (5) STEMI (ST elevation myocardial infarction) Current Visit: Yes Status: Resolved Subjective Date of service: 12/01/18 Principal diagnosis: acute [place] Interval history: The patient is lying in bed in NAD. Right arm still has surgical dressing and is painful. Objective Last Vital Signs Temp 98.9 F 12/01/18 08:23 Pulse 89 12/01/18 09:49 Resp 16 12/01/18 09:18 BP 143/77 12/01/18 08:23 Pulse Ox 96 12/01/18 08:23 - Physical Examination General: No Apparent Distress HEENT: Positive: PERRL, Mucus Membranes Moist Neck: Positive: neck supple, trachea midline Cardiac: Positive: Reg Rate and Rhythm Lungs: Positive: Normal Exam Neuro: Positive: Grossly Intact Abdomen: Positive: Unremarkable, Soft, Active Bowel Sounds. Negative: Tender, Distended /Rectal: Other (deferred) Skin: Positive: Clear, Other (s/p RUE fasciotomy - surgical dressing c/d/i) Incision: Cardiac Cath Site (s/p RUE fasciotomy. Surgical dressing is c/d/i.) Musculoskeletal: No Pain, Normal Range of Motion, other (RUE pain) Extremities: Present: normal, edema (RUE), Other (RUE is s/p fasciotomy. Surgical dressing in place. ) - Imaging and Cardiology Cardiac cath: report reviewed (Left heart cath revealed left main patent LAD proximal 100% circumflex patent obtuse marginal 1 and obtuse marginal 2. RCA moderate severe tortuosity. Mild luminal irregularities. moderate LV dysfunction anterior wall hypokinesis EF 35%. PCI of the LAD with a drug- eluting resolution on next 3.5 x 18 mm postdilated with a 4.0 by 12 restoring DOMINIK-3 flow ) - Telemetry EKG Rhythm: Sinus Rhythm
--- NOTE | 2018-12-01 12:25 | Progress Note ---
Assessment and Plan /Right arm compartment syndrome associated with neurological deficit; S/P: forearm fasciotomies superficial and deep compartments with release of carpal tunnel and application of Chen Ladders for partial wound closure and ligation of distal radial artery 11/28/18. Complaints of some pain, the arm is in the sling, continue supportive care pain management IR/vascular following - plan to close the wound on Monday/Monday /STEMI (ST elevation myocardial infarction) ST elevation (STEMI) myocardial infarction involving left anterior descending coronary artery - s/p KHURRAM Dual antiplatelet therapy, beta blockers RAMANDEEP inhibitor's nitrates and statins cardiology following /-Acute combined systolic and diastolic ACC/AHA stage C congestive heart failure likely from acute STEMI, Ef on cath 35%, cardiology following on Nitro and aggrstat drip, discontinued this morning ECHO:Moderate LVH, ejection fraction 40% / Hyperlipemia, mixed, cont statin /Tobacco abuse, smoking cessation counselled, nicotine patch as needed /-Obesity, diet regimen and weight reduction when clinically stable /Hypokalemia, replaced /Dvt Px, SCDs /Monitor closely and adjust management as needed Disposition; follow cardiology, vascular/IR recommendations Discharge when medically stable Brief History; Patient was admitted with ST elevation [place] status post PCI, developed right arm compartment syndrome status post fasciotomies on 11/28/2018, cardiology, vascular/IR following. Hospitalist Physical General appearance: Present: no acute distress, well-nourished, obese - EENT Eyes: Present: PERRL, EOM intact - Neck Neck: Present: supple, normal ROM - Respiratory Respiratory effort: normal Respiratory: bilateral: diminished, negative: rales, rhonchi, wheezing - Cardiovascular Rhythm: regular Heart Sounds: Present: S1 & S2 - Extremities Extremities: abnormal (right arm swelling, erythema and tenderness, dressing ) Extremity abnormal: edema, erythema - Abdominal General gastrointestinal: soft, non-tender, non-distended, normal bowel sounds - Integumentary Integumentary: Present: clear, warm - Psychiatric Psychiatric: appropriate mood/affect, cooperative - Neurologic Neurologic: CNII-XII intact, moves all extremities Subjective Date of service: 12/01/18 Principal diagnosis: acute [place] Interval history: Patient Seen and examined this morning medical records reviewed Patient complains of some pain in the right arm Denies chest pain or shortness of breath Vital signs noted Objective - Constitutional Vitals: Vital Signs - 12hr 12/01/18 12/01/18 12/01/18 04:23 08:20 08:23 Temperature 98.6 F 98.9 F Pulse Rate 67 Respiratory 18 18 Rate Respiratory 15 Rate [Medial Chest] Blood Pressure 114/71 143/77 O2 Sat by Pulse 96 Oximetry 12/01/18 12/01/18 12/01/18 09:18 09:48 09:49 Temperature Pulse Rate 89 Respiratory 16 16 Rate Respiratory Rate [Medial Chest] Blood Pressure O2 Sat by Pulse Oximetry 12/01/18 11:10 Temperature 98.6 F Pulse Rate 71 Respiratory 18 Rate Respiratory Rate [Medial Chest] Blood Pressure 119/58 O2 Sat by Pulse 98 Oximetry - Labs CBC & Chem 7: 11/30/18 05:55 11/30/18 05:55
--- NOTE | 2018-12-01 15:25 | Progress Note ---
Assessment and Plan Patient with no evidence of nerve deficit to right hand after decompression of right arm compartment syndrome. Right arm with too much edema to close the distal incision. Patient needs to elevate the arm to decrease the edema, in hope of closing the incision prior to discharge. Will reevaluate tomorrow with the plan to tighten the Burak's Ladder, if possible and potentially close the incision on Monday or Monday. Subjective Date of service: 12/01/18 Principal diagnosis: acute [place] Interval history: Patient without new complaints. No significant events overnight. Elevates right arm while awake but has difficulty keeping it elevated while asleep. Some burning sensation on skin with serous fluid drainage. No numbness or tingling. Objective - Constitutional Vitals: Vital Signs - 12hr 12/01/18 12/01/18 12/01/18 04:23 08:20 08:23 Temperature 98.6 F 98.9 F Pulse Rate 67 Respiratory 18 18 Rate Respiratory 15 Rate [Medial Chest] Blood Pressure 114/71 143/77 O2 Sat by Pulse 96 Oximetry 12/01/18 12/01/18 12/01/18 09:18 09:48 09:49 Temperature Pulse Rate 89 Respiratory 16 16 Rate Respiratory Rate [Medial Chest] Blood Pressure O2 Sat by Pulse Oximetry 12/01/18 11:10 Temperature 98.6 F Pulse Rate 71 Respiratory 18 Rate Respiratory Rate [Medial Chest] Blood Pressure 119/58 O2 Sat by Pulse 98 Oximetry General appearance: Present: no acute distress - Neck Neck: supple - Respiratory Respiratory effort: normal - Cardiovascular Rhythm: regular Extremity abnormal: edema (right hand/arm but somewhat improved), other (< 2 second capillary refill) - Labs CBC & Chem 7: 11/30/18 05:55 11/30/18 05:55 Medications & Allergies - Medications Allergies/Adverse Reactions: Allergies ibuprofen [From Motrin] Allergy (Verified 12/18/16 00:40) Vomiting Home Medications: Home Medications Medication Instructions Recorded Confirmed Last Taken Type Acetaminophen/Codeine [Tylenol 1 tab PO Q6H PRN #12 tab 12/18/16 11/26/18 Unknown Rx /Codeine # 3 tab] Cyclobenzaprine [Flexeril] 10 mg PO QHS PRN #24 tablet 12/18/16 11/26/18 Unknown Rx Active Medications: Generic Name Dose Route Start Last Admin Trade Name Freq PRN Reason Stop Dose Admin Acetaminophen 650 mg 11/26/18 15:44 11/26/18 20:18 Tylenol PO 650 mg Q4H PRN Administration Pain MILD(1-3)/Fever >100.5/[place] Acetaminophen/Hydrocodone Bitart 1 each 11/28/18 17:54 11/30/18 22:34 [place] 7.5/325 PO 1 each Q4H PRN Administration Pain, Moderate (4-6) Aspirin 81 mg 11/27/18 10:00 12/01/18 09:17 Baby Aspirin PO 81 mg QDAY TATA Administration Atorvastatin Calcium 80 mg 11/26/18 22:00 11/30/18 21:22 Lipitor PO 80 mg QHS TATA Administration Clopidogrel Bisulfate 75 mg 11/27/18 10:00 12/01/18 09:17 Plavix PO 75 mg QDAY TATA Administration Cyclobenzaprine HCl 10 mg 11/26/18 15:43 11/30/18 22:34 Flexeril PO 10 mg QHS PRN Administration Muscle Spasm Losartan Potassium 50 mg 11/28/18 10:00 12/01/18 09:17 Cozaar PO 50 mg QDAY TATA Administration Metoprolol Tartrate 50 mg 11/26/18 10:00 12/01/18 09:17 Lopressor PO 50 mg BID TATA Administration Morphine Sulfate 3 mg 11/28/18 17:54 12/01/18 09:18 Morphine IV 3 mg Q3H PRN Administration Pain , Severe (7-10) Ondansetron HCl 4 mg 11/26/18 18:15 11/26/18 18:35 Zofran IV 4 mg Q8H PRN Administration N/V unrelieved by Christoph Spironolactone 25 mg 11/26/18 10:00 12/01/18 09:17 Aldactone PO 25 mg DAILY TATA Administration
[2018-12-01] MEDS: NORCO 7.5/325 PO PRN ×2 (16:41→21:17)
[2018-12-01] MEDS: FLEXERIL PO PRN (21:16)
[2018-12-02] MEDS: COZAAR PO SCH (10:21)
[2018-12-02] MEDS: BABY ASPIRIN PO SCH (10:21)
[2018-12-02] MEDS: PLAVIX PO SCH (10:21)
[2018-12-02] MEDS: ALDACTONE PO SCH (10:21)
[2018-12-02] MEDS: LOPRESSOR PO SCH ×2 (10:22→21:04)
[2018-12-02] MEDS: MORPHINE IV PRN ×3 (10:22→20:11)
--- NOTE | 2018-12-02 13:50 | Progress Note ---
Assessment and Plan Patient is noncompliant with keeping her right arm elevated and this has prevented me from closing her wound using the Burak's Ladder. She has a significant amount of edema in the arm. I have counseled her daily about the importance of keeping her arm elevated however it is never elevated when I enter the room and the amount of edema present would indicate that she likely does not keep it elevated throughout the day. I have placed a soft restraint on her wrist and tied the strings to the i.v. pole, mount to the ceiling, to keep the arm elevated. This is her best chance of reducing the edema and having the incision closed prior to discharge. She will otherwise require discharge with a Wound Vac and may require referral to a plastic surgeon for a split thickness skin graft placement. Subjective Date of service: 12/02/18 Principal diagnosis: acute [place] Interval history: The patient has no new complaints. She went to smoke today, against the advice of staff and physicians. Objective - Constitutional Vitals: Vital Signs - 12hr 12/02/18 12/02/18 12/02/18 03:53 07:37 10:00 Temperature 98.2 F 99.3 F Pulse Rate 80 77 Respiratory 18 18 Rate Blood Pressure 152/77 146/68 O2 Sat by Pulse 95 Oximetry 12/02/18 12/02/18 10:21 10:22 Temperature Pulse Rate Respiratory Rate Blood Pressure 146/68 146/68 O2 Sat by Pulse Oximetry General appearance: Present: no acute distress Extremity abnormal: edema (right arm fasciotomy incision inspected and too much edema to bring reapproximate the skin edges any closer, significant amount of serous drainage, no evidence of infection. ), other (< 2 second capillary refill) - Neurologic Neurologic: other (motor and sensation intact right hand) - Labs CBC & Chem 7: 11/30/18 05:55 11/30/18 05:55 Medications & Allergies - Medications Allergies/Adverse Reactions: Allergies ibuprofen [From Motrin] Allergy (Verified 12/18/16 00:40) Vomiting Home Medications: Home Medications Medication Instructions Recorded Confirmed Last Taken Type Acetaminophen/Codeine [Tylenol 1 tab PO Q6H PRN #12 tab 12/18/16 11/26/18 Unknown Rx /Codeine # 3 tab] Cyclobenzaprine [Flexeril] 10 mg PO QHS PRN #24 tablet 12/18/16 11/26/18 Unknown Rx Active Medications: Generic Name Dose Route Start Last Admin Trade Name Freq PRN Reason Stop Dose Admin Acetaminophen 650 mg 11/26/18 15:44 11/26/18 20:18 Tylenol PO 650 mg Q4H PRN Administration Pain MILD(1-3)/Fever >100.5/[place] Acetaminophen/Hydrocodone Bitart 1 each 11/28/18 17:54 12/01/18 21:17 [place] 7.5/325 PO 1 each Q4H PRN Administration Pain, Moderate (4-6) Aspirin 81 mg 11/27/18 10:00 12/02/18 10:21 Baby Aspirin PO 81 mg QDAY [facility] Administration Atorvastatin Calcium 80 mg 11/26/18 22:00 12/01/18 21:16 Lipitor PO 80 mg QHS TATA Administration Clopidogrel Bisulfate 75 mg 11/27/18 10:00 12/02/18 10:21 Plavix PO 75 mg QDAY [place] Administration Cyclobenzaprine HCl 10 mg 11/26/18 15:43 12/01/18 21:16 Flexeril PO 10 mg QHS PRN Administration Muscle Spasm Losartan Potassium 50 mg 11/28/18 10:00 12/02/18 10:21 Cozaar PO 50 mg QDAY [facility] Administration Metoprolol Tartrate 50 mg 11/26/18 10:00 12/02/18 10:22 Lopressor PO 50 mg BID TATA Administration Morphine Sulfate 3 mg 11/28/18 17:54 12/02/18 10:22 Morphine IV 3 mg Q3H PRN Administration Pain , Severe (7-10) Ondansetron HCl 4 mg 11/26/18 18:15 11/26/18 18:35 Zofran IV 4 mg Q8H PRN Administration N/V unrelieved by Christoph Spironolactone 25 mg 11/26/18 10:00 12/02/18 10:21 Aldactone PO 25 mg DAILY TATA Administration
--- NOTE | 2018-12-02 14:20 | Progress Note ---
Assessment and Plan The patient's cardiac status is stable. She is tentatively planned for a wound closure tomorrow, but per surgery, this may be postponed d/t prolonged edema. Of note, patient reportedly went to smoke today - had lengthy discussion with patient several days ago on the importance of smoking cessation. The patient has been seen in conjunction with Dr. Alberts, who agrees with the assessment and plan of care. - Patient Problems (1) Acute combined systolic and diastolic ACC/AHA stage C congestive heart failure Current Visit: No Status: Acute (2) Compartment syndrome of forearm Current Visit: Yes Status: Acute (3) Hyperlipemia, mixed Current Visit: No Status: Chronic (4) Smoker Current Visit: No Status: Chronic (5) STEMI (ST elevation myocardial infarction) Current Visit: Yes Status: Resolved Subjective Date of service: 12/02/18 Principal diagnosis: acute [place] Interval history: The patient is in the hallway with RN. No new cardiac complaints, but c/o pain and edema in right arm. Moderate amount of serosanguinous drainage noted on gauze dressing, which is very loose and exposing wound. Objective Last Vital Signs Temp 99.3 F 12/02/18 07:37 Pulse 77 12/02/18 10:00 Resp 18 12/02/18 07:37 BP 146/68 12/02/18 10:22 Pulse Ox 95 12/02/18 03:53 - Physical Examination General: No Apparent Distress HEENT: Positive: PERRL, Mucus Membranes Moist Neck: Positive: neck supple, trachea midline Cardiac: Positive: Reg Rate and Rhythm Lungs: Positive: Normal Exam Neuro: Positive: Grossly Intact Abdomen: Positive: Unremarkable, Soft, Active Bowel Sounds. Negative: Tender, Distended /Rectal: Other (deferred) Skin: Positive: Clear, Other (s/p RUE fasciotomy - gauze dressing with moderate amt of serosang drainage.) Incision: Cardiac Cath Site (s/p RUE fasciotomy. ) Musculoskeletal: No Pain, Normal Range of Motion, other (RUE pain) Extremities: Present: edema (RUE), Other (RUE is s/p fasciotomy. Surgical dressing in place. ) - Imaging and Cardiology Cardiac cath: report reviewed (Left heart cath revealed left main patent LAD proximal 100% circumflex patent obtuse marginal 1 and obtuse marginal 2. RCA moderate severe tortuosity. Mild luminal irregularities. moderate LV dysfunction anterior wall hypokinesis EF 35%. PCI of the LAD with a drug- eluting resolution on next 3.5 x 18 mm postdilated with a 4.0 by 12 restoring [place]-3 flow ) - Telemetry EKG Rhythm: Sinus Rhythm
--- NOTE | 2018-12-02 17:30 | Progress Note ---
Assessment and Plan Assessment and plan: Patient was admitted with ST elevation [place] status post PCI, developed right arm compartment syndrome status post fasciotomies on 11/28/2018, cardiology, vascular/IR following. Right arm compartment syndrome associated with neurological deficit; S/P: forearm fasciotomies superficial and deep compartments with release of carpal tunnel and application of Chen Ladders for partial wound closure and ligation of distal radial artery 11/28/18. Complaints of some pain, the arm is in the sling, continue supportive care pain management IR/vascular following - plan to close the wound on Monday/Monday STEMI (ST elevation myocardial infarction) ST elevation (STEMI) myocardial infarction involving left anterior descending coronary artery - s/p KHURRAM Dual antiplatelet therapy, beta blockers RAMANDEEP inhibitor's nitrates and statins cardiology following Acute combined systolic and diastolic ACC/AHA stage C congestive heart failure likely from acute STEMI, Cardiology following Nitro and Aggrastat drip discontinued ECHO:Moderate LVH, ejection fraction 40% Hyperlipemia, mixed, cont statin Tobacco abuse, smoking cessation counselled, nicotine patch as needed Obesity, diet regimen and weight reduction when clinically stable Hypokalemia, replaced Dvt Px, SCDs Monitor closely and adjust management as needed Disposition; follow cardiology, vascular/IR recommendations Not stable for discharge History Interval history: pain right upper ext No chest pain Hospitalist Physical - Physical exam Narrative exam: Gen: Not in acute distress, lying in bed, morbidly obese HEENT: Normocephalic, atraumatic Neck: supple, no JVD Heart: S1 and S2 reg, no murmurs, rubs or gallop Lungs: Clear to auscultation, no crackles, no rhonchi Abd: soft, non tender, non distended, normal BS, Ext: Right upper ext, covered with dressing, bandage, elevated Neuro: Awake,alert, Oriented X 3. No focal neurological signs Psych: normal mood - Constitutional Vitals: Temp Pulse Resp BP Pulse Ox 99.3 F 72 22 146/68 95 12/02/18 07:37 12/02/18 10:00 12/02/18 10:00 12/02/18 10:22 12/02/18 03:53 General appearance: Present: no acute distress Results - Labs CBC & Chem 7: 11/30/18 05:55 11/30/18 05:55 Labs: Laboratory Last Values WBC 7.1 K/mm3 (4.5-11.0) 11/30/18 05:55 RBC 3.83 M/mm3 (3.65-5.03) 11/30/18 05:55 Hgb 12.3 gm/dl (10.1-14.3) 11/30/18 05:55 Hct 36.4 % (30.3-42.9) 11/30/18 05:55 MCV 95 fl (79-97) 11/30/18 05:55 MCH 32 pg (28-32) 11/30/18 05:55 MCHC 34 % (30-34) 11/30/18 05:55 RDW 14.2 % (13.2-15.2) 11/30/18 05:55 Plt Count 227 K/mm3 (140-440) 11/30/18 05:55 Lymph % (Auto) 22.4 % (13.4-35.0) 11/30/18 05:55 [place] % (Auto) 9.2 % (0.0-7.3) H 11/30/18 05:55 Eos % (Auto) 2.9 % (0.0-4.3) 11/30/18 05:55 Baso % (Auto) 0.3 % (0.0-1.8) 11/30/18 05:55 Lymph # 1.6 K/mm3 (1.2-5.4) 11/30/18 05:55 [place] # 0.7 K/mm3 (0.0-0.8) 11/30/18 05:55 Eos # 0.2 K/mm3 (0.0-0.4) 11/30/18 05:55 Baso # 0.0 K/mm3 (0.0-0.1) 11/30/18 05:55 Seg Neutrophils % 65.2 % (40.0-70.0) 11/30/18 05:55 Seg Neutrophils # 4.6 K/mm3 (1.8-7.7) 11/30/18 05:55 PT 12.3 Sec. (12.2-14.9) 11/26/18 06:05 INR 0.94 (0.87-1.13) 11/26/18 06:05 APTT 21.3 Sec. (24.2-36.6) L 11/26/18 06:05 323 (74-137) H 11/26/18 07:13 Sodium 141 mmol/L (137-145) 11/30/18 05:55 Potassium 4.2 mmol/L (3.6-5.0) 11/30/18 05:55 Chloride 106.7 mmol/L (98-107) 11/30/18 05:55 Carbon Dioxide 27 mmol/L (22-30) 11/30/18 05:55 12 mmol/L 11/30/18 05:55 BUN 9 mg/dL (7-17) 11/30/18 05:55 0.6 mg/dL (0.7-1.2) L 11/30/18 05:55 Estimated GFR > 60 ml/min 11/30/18 05:55 15 % 11/30/18 05:55 Glucose 123 mg/dL (65-100) H 11/30/18 05:55 POC Glucose 131 (70-105) H 11/27/18 10:50 Calcium 8.5 mg/dL (8.4-10.2) 11/30/18 05:55 Magnesium 2.00 mg/dL (1.7-2.3) 11/30/18 05:55 0.40 mg/dL (0.1-1.2) 11/30/18 05:55 AST 35 units/L (5-40) 11/30/18 05:55 ALT 19 units/L (7-56) 11/30/18 05:55 40 units/L (35-129) 11/30/18 05:55 287 units/L (30-135) H 11/30/18 05:55 CK-MB (CK-2) 21.4 ng/mL (0.0-4.0) H 11/28/18 03:35 CK-MB (CK-2) Rel Index 2.7 (0-4) 11/28/18 03:35 2.740 ng/mL (0.00-0.029) H* 11/27/18 11:21 5.6 g/dL (6.3-8.2) L 11/30/18 05:55 2.9 g/dL (3.9-5) L 11/30/18 05:55 1.1 % 11/30/18 05:55 Triglycerides 55 mg/dL (2-149) 11/26/18 06:05 Cholesterol 143 mg/dL (50-199) 11/26/18 06:05 92 mg/dL (50-130) 11/26/18 06:05 61 mg/dL (40-59) H 11/26/18 06:05 2.34 % 11/26/18 06:05 Blood Type O POSITIVE 11/26/18 06:05 Antibody Screen Negative 11/26/18 06:05 Active Medications - Current Medications Current Medications: Generic Name Dose Route Start Last Admin Trade Name Freq PRN Reason Stop Dose Admin Acetaminophen 650 mg 11/26/18 15:44 11/26/18 20:18 Tylenol PO 650 mg Q4H PRN Administration Pain MILD(1-3)/Fever >100.5/[place] Acetaminophen/Hydrocodone Bitart 1 each 11/28/18 17:54 12/01/18 21:17 [place] 7.5/325 PO 1 each Q4H PRN Administration Pain, Moderate (4-6) Aspirin 81 mg 11/27/18 10:00 12/02/18 10:21 Baby Aspirin PO 81 mg QDAY [place]ATA Administration Atorvastatin Calcium 80 mg 11/26/18 22:00 12/01/18 21:16 Lipitor PO 80 mg QHS [facility]ATA Administration Clopidogrel Bisulfate 75 mg 11/27/18 10:00 12/02/18 10:21 Plavix PO 75 mg QDAY [place] Administration Cyclobenzaprine HCl 10 mg 11/26/18 15:43 12/01/18 21:16 Flexeril PO 10 mg QHS PRN Administration Muscle Spasm Losartan Potassium 50 mg 11/28/18 10:00 12/02/18 10:21 Cozaar PO 50 mg QDAY [facility] Administration Metoprolol Tartrate 50 mg 11/26/18 10:00 12/02/18 10:22 Lopressor PO 50 mg BID TATA Administration Morphine Sulfate 3 mg 11/28/18 17:54 12/02/18 14:03 Morphine IV 3 mg Q3H PRN Administration Pain , Severe (7-10) Ondansetron HCl 4 mg 11/26/18 18:15 11/26/18 18:35 Zofran IV 4 mg Q8H PRN Administration N/V unrelieved by Christoph Spironolactone 25 mg 11/26/18 10:00 08/18/19 10:21 Aldactone PO 25 mg DAILY TATA Administration
[2018-12-03] MEDS: MORPHINE IV PRN ×2 (06:12→19:59)
[2018-12-03] MEDS: COZAAR PO SCH (10:32)
[2018-12-03] MEDS: ALDACTONE PO SCH (10:32)
[2018-12-03] MEDS: LOPRESSOR PO SCH ×2 (10:32→21:41)
[2018-12-03] MEDS: BABY ASPIRIN PO SCH (10:32)
[2018-12-03] MEDS: PLAVIX PO SCH (10:33)
--- NOTE | 2018-12-03 11:26 | Progress Note ---
Assessment and Plan Assessment and plan: Patient was admitted with STEMI status post PCI, developed right arm compartment syndrome status post fasciotomies on 11/28/2018, cardiology, vascular/IR following. Right arm compartment syndrome associated with neurological deficit; S/P: forearm fasciotomies superficial and deep compartments with release of carpal tunnel and application of Chen Ladders for partial wound closure and ligation of distal radial artery 11/28/18. Complaints of some pain, the arm is in the sling, continue supportive care pain management IR/vascular following - plan to close the wound on Monday/Monday Discussed with Dr. Parmar. He states Patient may have partial closure of wound with wound vac because of edema. STEMI (ST elevation myocardial infarction) ST elevation (STEMI) myocardial infarction involving left anterior descending coronary artery - s/p KHURRAM Dual antiplatelet therapy, beta blockers RAMANDEEP inhibitor's nitrates and statins cardiology following Acute combined systolic and diastolic ACC/AHA stage C congestive heart failure likely from acute STEMI, Cardiology following Nitro and Aggrastat drip discontinued ECHO:Moderate LVH, ejection fraction 40% Hyperlipemia, mixed, cont statin Tobacco abuse, smoking cessation counselled, nicotine patch as needed Obesity, diet regimen and weight reduction when clinically stable Hypokalemia, replaced Dvt Px, SCDs Monitor closely and adjust management as needed Disposition; follow cardiology, vascular/IR recommendations Not stable for discharge Full code status. History Interval history: pain right upper ext No chest pain Hospitalist Physical - Physical exam Narrative exam: Gen: Not in acute distress, sitting up in chair, morbidly obese HEENT: Normocephalic, atraumatic Neck: supple, no JVD Heart: S1 and S2 reg, no murmurs, rubs or gallop Lungs: Clear to auscultation, no crackles, no rhonchi Abd: soft, non tender, non distended, normal BS, Ext: Right upper ext covered with dressing, bandage, Neuro: Awake,alert, Oriented X 3. No focal neurological signs - Constitutional Vitals: Temp Pulse Resp BP Pulse Ox 98.2 F 67 20 139/77 100 12/03/18 07:48 12/03/18 10:41 12/03/18 10:00 12/03/18 07:48 12/03/18 03:15 General appearance: Present: no acute distress Results - Labs CBC & Chem 7: 12/04/18 05:33 12/04/18 05:33 Labs: Laboratory Last Values WBC 7.1 K/mm3 (4.5-11.0) 11/30/18 05:55 RBC 3.83 M/mm3 (3.65-5.03) 11/30/18 05:55 Hgb 12.3 gm/dl (10.1-14.3) 11/30/18 05:55 Hct 36.4 % (30.3-42.9) 11/30/18 05:55 MCV 95 fl (79-97) 11/30/18 05:55 MCH 32 pg (28-32) 11/30/18 05:55 MCHC 34 % (30-34) 11/30/18 05:55 RDW 14.2 % (13.2-15.2) 11/30/18 05:55 Plt Count 227 K/mm3 (140-440) 11/30/18 05:55 Lymph % (Auto) 22.4 % (13.4-35.0) 11/30/18 05:55 [place] % (Auto) 9.2 % (0.0-7.3) H 11/30/18 05:55 Eos % (Auto) 2.9 % (0.0-4.3) 11/30/18 05:55 Baso % (Auto) 0.3 % (0.0-1.8) 11/30/18 05:55 Lymph # 1.6 K/mm3 (1.2-5.4) 11/30/18 05:55 [place] # 0.7 K/mm3 (0.0-0.8) 11/30/18 05:55 Eos # 0.2 K/mm3 (0.0-0.4) 11/30/18 05:55 Baso # 0.0 K/mm3 (0.0-0.1) 11/30/18 05:55 Seg Neutrophils % 65.2 % (40.0-70.0) 11/30/18 05:55 Seg Neutrophils # 4.6 K/mm3 (1.8-7.7) 11/30/18 05:55 PT 12.3 Sec. (12.2-14.9) 11/26/18 06:05 INR 0.94 (0.87-1.13) 11/26/18 06:05 APTT 21.3 Sec. (24.2-36.6) L 11/26/18 06:05 323 (74-137) H 11/26/18 07:13 Sodium 141 mmol/L (137-145) 11/30/18 05:55 Potassium 4.2 mmol/L (3.6-5.0) 11/30/18 05:55 Chloride 106.7 mmol/L (98-107) 11/30/18 05:55 Carbon Dioxide 27 mmol/L (22-30) 11/30/18 05:55 12 mmol/L 11/30/18 05:55 BUN 9 mg/dL (7-17) 11/30/18 05:55 0.6 mg/dL (0.7-1.2) L 11/30/18 05:55 Estimated GFR > 60 ml/min 11/30/18 05:55 15 % 11/30/18 05:55 Glucose 123 mg/dL (65-100) H 11/30/18 05:55 POC Glucose 131 (70-105) H 11/27/18 10:50 Calcium 8.5 mg/dL (8.4-10.2) 11/30/18 05:55 Magnesium 2.00 mg/dL (1.7-2.3) 11/30/18 05:55 0.40 mg/dL (0.1-1.2) 11/30/18 05:55 AST 35 units/L (5-40) 11/30/18 05:55 ALT 19 units/L (7-56) 11/30/18 05:55 40 units/L (35-129) 11/30/18 05:55 287 units/L (30-135) H 11/30/18 05:55 CK-MB (CK-2) 21.4 ng/mL (0.0-4.0) H 11/28/18 03:35 CK-MB (CK-2) Rel Index 2.7 (0-4) 11/28/18 03:35 2.740 ng/mL (0.00-0.029) H* 11/27/18 11:21 5.6 g/dL (6.3-8.2) L 11/30/18 05:55 2.9 g/dL (3.9-5) L 11/30/18 05:55 1.1 % 11/30/18 05:55 Triglycerides 55 mg/dL (2-149) 11/26/18 06:05 Cholesterol 143 mg/dL (50-199) 11/26/18 06:05 92 mg/dL (50-130) 11/26/18 06:05 61 mg/dL (40-59) H 11/26/18 06:05 2.34 % 11/26/18 06:05 Blood Type O POSITIVE 11/26/18 06:05 Antibody Screen Negative 11/26/18 06:05 Active Medications - Current Medications Current Medications: Generic Name Dose Route Start Last Admin Trade Name Freq PRN Reason Stop Dose Admin Acetaminophen 650 mg 11/26/18 15:44 11/26/18 20:18 Tylenol PO 650 mg Q4H PRN Administration Pain MILD(1-3)/Fever >100.5/[place] Acetaminophen/Hydrocodone Bitart 1 each 11/28/18 17:54 12/01/18 21:17 [place] 7.5/325 PO 1 each Q4H PRN Administration Pain, Moderate (4-6) Aspirin 81 mg 11/27/18 10:00 12/03/18 10:32 Baby Aspirin PO Not Given QDAY [facility] Atorvastatin Calcium 80 mg 11/26/18 22:00 12/02/18 21:04 Lipitor PO 80 mg QHS [facility] Administration Clopidogrel Bisulfate 75 mg 11/27/18 10:00 12/03/18 10:33 Plavix PO Not Given QDAY [facility] Cyclobenzaprine HCl 10 mg 11/26/18 15:43 12/01/18 21:16 Flexeril PO 10 mg QHS PRN Administration Muscle Spasm Losartan Potassium 50 mg 11/28/18 10:00 12/03/18 10:32 Cozaar PO Not Given QDAY [facility] Metoprolol Tartrate 50 mg 11/26/18 10:00 12/03/18 10:32 Lopressor PO Not Given BID [facility] Morphine Sulfate 3 mg 11/28/18 17:54 12/03/18 06:12 Morphine IV 3 mg Q3H PRN Administration Pain , Severe (7-10) Ondansetron HCl 4 mg 11/26/18 18:15 11/26/18 18:35 Zofran IV 4 mg Q8H PRN Administration N/V unrelieved by Christoph Spironolactone 25 mg 11/26/18 10:00 12/03/18 10:32 Aldactone PO Not Given DAILY [facility]ATA
--- NOTE | 2018-12-03 15:12 | Progress Note ---
Assessment and Plan (1) Acute combined systolic and diastolic ACC/AHA stage C congestive heart failure Current Visit: No Status: Acute (2) Compartment syndrome of forearm Current Visit: Yes Status: Acute (3) Hyperlipemia, mixed Current Visit: No Status: Chronic (4) Smoker Current Visit: No Status: Chronic (5) STEMI (ST elevation myocardial infarction) Subjective Date of service: 12/03/18 Principal diagnosis: acute [place] Interval history: Patient is ambulating. No chest pain. Waiting for wound closure on the right forearm. Objective Vital Signs Temp Pulse Pulse Resp BP Pulse Ox 12/03/18 10:41 67 12/03/18 10:00 72 20 12/03/18 07:48 98.2 F 18 139/77 12/03/18 06:12 20 12/03/18 05:49 85 12/03/18 03:15 98.2 F 76 18 135/71 100 12/02/18 23:19 98.7 F 76 16 140/61 95 12/02/18 22:00 76 12/02/18 21:04 85 153/87 12/02/18 20:11 20 12/02/18 19:20 98.4 F 85 18 153/87 98 12/02/18 16:51 98.6 F 18 128/59 - Physical Examination General: No Apparent Distress HEENT: Positive: PERRL, Mucus Membranes Moist Neck: Positive: neck supple, trachea midline Neuro: Positive: Grossly Intact Abdomen: Positive: Unremarkable, Soft, Active Bowel Sounds. Negative: Tender, Distended /Rectal: Other (deferred) Skin: Positive: Clear, Other (s/p RUE fasciotomy - gauze dressing with moderate amt of serosang drainage.) Incision: Cardiac Cath Site (s/p RUE fasciotomy. ) Musculoskeletal: No Pain, Normal Range of Motion, other (RUE pain) Extremities: Present: edema (RUE), Other (RUE is s/p fasciotomy. Surgical dressing in place. ) - Imaging and Cardiology Cardiac cath: report reviewed (Left heart cath revealed left main patent LAD proximal 100% circumflex patent obtuse marginal 1 and obtuse marginal 2. RCA moderate severe tortuosity. Mild luminal irregularities. moderate LV dysfunction anterior wall hypokinesis EF 35%. PCI of the LAD with a drug- eluting resolution on next 3.5 x 18 mm postdilated with a 4.0 by 12 restoring TI [place]-3 flow )
--- NOTE | 2018-12-03 17:13 | Progress Note ---
Assessment and Plan 63-year-old female with right upper extremity compartment syndrome due to complicated access of the radial artery requiring radial artery ligation and fasciotomies. Appears to have full hand function. Cannot completely flex her fingers due to forearm pain. Sensory function intact. No hand pain. Forearm pain at the incision sites. Edema will likely prevent full closure of fasciotomy tomorrow. Will probably have partial closure with fasciotomy and wound vac placement. Recommend case management attempt to obtain wound vac. Subjective Date of service: 12/03/18 Principal diagnosis: acute [place] Interval history: Status post right upper extremity arm fasciotomy. Walked into room and patient started screaming and yelling. I explained that she suffered a complication in the course of treating her STEMI which saved her life. Her radial artery was injured requiring ligation and fasciotomy. She told me she would rather not have had anything done, which means she would have rather been . At that point she walked out of the room and started yelling more. Ultimately she calmed down. I restored her diet. Patient came back for evaluation. Motor function appears fully intact. She cannot completely squeeze her hand but this is due to underlying pain in her forearm from fasciotomies. Sensory function completely intact in the hand. Ca pillary refill less than 2 in each digit with warm hand equal in warmth to her other hand. Fasciotomy defect is still present not allowing for further tightening of the ladder. Objective - Constitutional Vitals: Vital Signs - 12hr 12/03/18 12/03/18 12/03/18 05:49 06:12 07:48 Temperature 98.2 F Pulse Rate 85 Pulse Rate [ Right Dorsalis Pedis] Respiratory 20 18 Rate Blood Pressure 139/77 12/03/18 12/03/18 10:00 10:41 Temperature Pulse Rate 67 Pulse Rate [ 72 Right Dorsalis Pedis] Respiratory 20 Rate Blood Pressure General appearance: Present: no acute distress - EENT Eyes: EOM intact ENT: hearing intact - Respiratory Respiratory effort: normal Extremities: abnormal (see subjective) - Psychiatric Psychiatric: appropriate mood/affect, cooperative - Labs CBC & Chem 7: 11/30/18 05:55 11/30/18 05:55 Medications & Allergies - Medications Allergies/Adverse Reactions: Allergies ibuprofen [From Motrin] Allergy (Verified 12/18/16 00:40) Vomiting Home Medications: Home Medications Medication Instructions Recorded Confirmed Last Taken Type Acetaminophen/Codeine [Tylenol 1 tab PO Q6H PRN #12 tab 12/18/16 11/26/18 Unknown Rx /Codeine # 3 tab] Cyclobenzaprine [Flexeril] 10 mg PO QHS PRN #24 tablet 12/18/16 11/26/18 Unknown Rx Active Medications: Generic Name Dose Route Start Last Admin Trade Name Freq PRN Reason Stop Dose Admin Acetaminophen 650 mg 11/26/18 15:44 11/26/18 20:18 Tylenol PO 650 mg Q4H PRN Administration Pain MILD(1-3)/Fever >100.5/[place] Acetaminophen/Hydrocodone Bitart 1 each 11/28/18 17:54 12/01/18 21:17 [place] 7.5/325 PO 1 each Q4H PRN Administration Pain, Moderate (4-6) Aspirin 81 mg 11/27/18 10:00 12/03/18 10:32 Baby Aspirin PO Not Given QDAY [facility] Atorvastatin Calcium 80 mg 11/26/18 22:00 12/02/18 21:04 Lipitor PO 80 mg QHS [facility] Administration Clopidogrel Bisulfate 75 mg 11/27/18 10:00 12/03/18 10:33 Plavix PO Not Given QDAY [facility] Cyclobenzaprine HCl 10 mg 11/26/18 15:43 12/01/18 21:16 Flexeril PO 10 mg QHS PRN Administration Muscle Spasm Losartan Potassium 50 mg 11/28/18 10:00 12/03/18 10:32 Cozaar PO Not Given QDAY [facility] Metoprolol Tartrate 50 mg 11/26/18 10:00 12/03/18 10:32 Lopressor PO Not Given BID [facility] Morphine Sulfate 3 mg 11/28/18 17:54 12/03/18 06:12 Morphine IV 3 mg Q3H PRN Administration Pain , Severe (7-10) Ondansetron HCl 4 mg 11/26/18 18:15 11/26/18 18:35 Zofran IV 4 mg Q8H PRN Administration N/V unrelieved by Christoph Spironolactone 25 mg 11/26/18 10:00 12/03/18 10:32 Aldactone PO Not Given DAILY [facility]
[2018-12-03] MEDS: FLEXERIL PO PRN (21:41)
[2018-12-04] MEDS: MORPHINE IV PRN ×2 (05:36→21:58)
[2018-12-04 05:49] LABS: Hematocrit 36.4 % (30.3-42.9); Hemoglobin 12.3 gm/dl (10.1-14.3); Mean Corpuscular HGB Conc 34 % (30-34); Mean Corpuscular Volume 93 fl (79-97); Platelet Count 314 K/mm3 (140-440); Red Cell Distribution Width 13.8 % (13.2-15.2)
[2018-12-04 06:01] LABS: BUN/Creatinine Ratio 15; Blood Urea Nitrogen 9 mg/dL (7-17); Calcium 8.8 mg/dL (8.4-10.2); Hemolysis Index 3
[2018-12-04] MEDS: COZAAR PO SCH (10:52)
[2018-12-04] MEDS: LOPRESSOR PO SCH ×2 (10:53→22:01)
[2018-12-04] MEDS: BABY ASPIRIN PO SCH (10:53)
[2018-12-04] MEDS: ALDACTONE PO SCH (10:53)
[2018-12-04] MEDS: PLAVIX PO SCH (10:53)
--- NOTE | 2018-12-04 13:25 | Progress Note ---
Assessment and Plan Currently stable cardiac status. Cont present cardiac management. Follow vascular recs - for possible fasciotomy closure today. The patient has been seen in conjunction with Dr. Stoddard who agrees with the assessment and plan of care. - Patient Problems (1) STEMI (ST elevation myocardial infarction) Current Visit: Yes Status: Resolved (2) CAD (coronary artery disease) Current Visit: Yes Status: Chronic (3) Stented coronary artery Current Visit: Yes Status: Chronic (4) Acute HFrEF (heart failure with reduced ejection fraction) Current Visit: Yes Status: Resolved (5) Ischemic cardiomyopathy Current Visit: Yes Status: Chronic (6) Compartment syndrome of forearm Current Visit: Yes Status: Acute (7) Hyperlipemia, mixed Current Visit: Yes Status: Chronic (8) Smoker Current Visit: Yes Status: Chronic Subjective Date of service: 12/04/18 Principal diagnosis: STEMI Interval history: pt resting up in chair, no current cardiac complaints. states right arm swelling is improving today, still with right arm pain, arm wrapped in dressing. for possible fasciotomy closure today. Objective Last Vital Signs Temp 98.6 F 12/04/18 12:39 Pulse 74 12/04/18 12:39 Resp 20 12/04/18 12:39 BP 142/87 12/04/18 12:39 Pulse Ox 98 12/04/18 12:39 - Physical Examination General: No Apparent Distress HEENT: Positive: PERRL, Mucus Membranes Moist Neck: Positive: neck supple, trachea midline Cardiac: Positive: Reg Rate and Rhythm, S1/S2 Lungs: Positive: clear to auscultation Neuro: Positive: Grossly Intact Abdomen: Positive: Unremarkable, Soft, Active Bowel Sounds. Negative: Tender, Distended /Rectal: Other (deferred) Skin: Positive: Clear, Other (s/p RUE fasciotomy - gauze dressing with moderate amt of serosang drainage.) Incision: Cardiac Cath Site (s/p RUE fasciotomy. ) Musculoskeletal: No Pain, Normal Range of Motion, other (RUE pain) Extremities: Present: edema (RUE), Other (RUE is s/p fasciotomy. Surgical dressing in place. ) - Labs and Meds CBC 12/04/18 Range/Units 05:33 WBC 6.4 (4.5-11.0) K/mm3 RBC 3.90 (3.65-5.03) M/mm3 Hgb 12.3 (10.1-14.3) gm/dl Hct 36.4 (30.3-42.9) % Plt Count 314 (140-440) K/mm3 Comprehensive Metabolic Panel 12/04/18 Range/Units 05:33 Sodium 142 (137-145) mmol/L Potassium 4.4 (3.6-5.0) mmol/L Chloride 106.8 (98-107) mmol/L Carbon Dioxide 27 (22-30) mmol/L BUN 9 (7-17) mg/dL Creatinine 0.6 L (0.7-1.2) mg/dL Glucose 101 H (65-100) mg/dL Calcium 8.8 (8.4-10.2) mg/dL - Imaging and Cardiology Echo: report reviewed (11/2018: EF 40%, mod LVH, mid distal inferoseptum thin and akinetic, impaired relaxation) Cardiac cath: report reviewed (Left heart cath revealed left main patent LAD proximal 100% circumflex patent obtuse marginal 1 and obtuse marginal 2. RCA moderate severe tortuosity. Mild luminal irregularities. moderate LV dysfunction anterior wall hypokinesis EF 35%. PCI of the LAD with a drug- eluting resolution on next 3.5 x 18 mm postdilated with a 4.0 by 12 restoring DOMINIK-3 flow ) - Telemetry EKG Rhythm: Sinus Rhythm
--- NOTE | 2018-12-04 13:26 | Progress Note ---
Assessment and Plan Assessment and plan: Right arm compartment syndrome associated with neurological deficit; S/P: forearm fasciotomies superficial and deep compartments with release of carpal tunnel and application of Chen Ladders for partial wound closure and ligation of distal radial artery 11/28/18. Continue supportive care pain management IR/vascular following - plan to close the wound on Monday/Monday Discussed with Dr. Parmar. He states Patient may have partial closure of wound with wound vac because of edema. STEMI (ST elevation myocardial infarction) ST elevation (STEMI) myocardial infarction involving left anterior descending coronary artery - s/p KHURRAM Dual antiplatelet therapy, beta blockers RAMANDEEP inhibitor's nitrates and statins cardiology following Acute combined systolic and diastolic ACC/AHA stage C congestive heart failure likely from acute STEMI, Cardiology following Nitro and Aggrastat drip discontinued ECHO:Moderate LVH, ejection fraction 40% Hyperlipemia, mixed, cont statin Tobacco abuse, smoking cessation counselled, nicotine patch as needed Obesity, diet regimen and weight reduction when clinically stable Hypokalemia, replaced Dvt Px, SCDs History Interval history: No new issues overnight. Hospitalist Physical - Constitutional Vitals: Temp Pulse Resp BP Pulse Ox 98.6 F 74 20 142/87 98 12/04/18 12:39 12/04/18 12:39 12/04/18 12:39 12/04/18 12:39 12/04/18 12:39 General appearance: Present: no acute distress - EENT Eyes: Present: PERRL, EOM intact ENT: hearing intact, clear oral mucosa, dentition normal - Neck Neck: Present: supple, normal ROM - Respiratory Respiratory effort: normal Respiratory: bilateral: CTA - Cardiovascular Rhythm: regular Heart Sounds: Present: S1 & S2. Absent: gallop, rub - Extremities Extremities: no ischemia, No edema, Full ROM - Abdominal General gastrointestinal: soft, non-tender, non-distended, normal bowel sounds - Integumentary Integumentary: Present: clear, warm, dry - Neurologic Neurologic: CNII-XII intact, moves all extremities Results - Labs CBC & Chem 7: 12/04/18 05:33 12/04/18 05:33 Labs: Laboratory Last Values WBC 6.4 K/mm3 (4.5-11.0) 12/04/18 05:33 RBC 3.90 M/mm3 (3.65-5.03) 12/04/18 05:33 Hgb 12.3 gm/dl (10.1-14.3) 12/04/18 05:33 Hct 36.4 % (30.3-42.9) 12/04/18 05:33 MCV 93 fl (79-97) 12/04/18 05:33 MCH 32 pg (28-32) 12/04/18 05:33 MCHC 34 % (30-34) 12/04/18 05:33 RDW 13.8 % (13.2-15.2) 12/04/18 05:33 Plt Count 314 K/mm3 (140-440) 12/04/18 05:33 Lymph % (Auto) 22.4 % (13.4-35.0) 11/30/18 05:55 Walker % (Auto) 9.2 % (0.0-7.3) H 11/30/18 05:55 Eos % (Auto) 2.9 % (0.0-4.3) 11/30/18 05:55 Baso % (Auto) 0.3 % (0.0-1.8) 11/30/18 05:55 Lymph # 1.6 K/mm3 (1.2-5.4) 11/30/18 05:55 Walker # 0.7 K/mm3 (0.0-0.8) 11/30/18 05:55 Eos # 0.2 K/mm3 (0.0-0.4) 11/30/18 05:55 Baso # 0.0 K/mm3 (0.0-0.1) 11/30/18 05:55 Seg Neutrophils % 65.2 % (40.0-70.0) 11/30/18 05:55 Seg Neutrophils # 4.6 K/mm3 (1.8-7.7) 11/30/18 05:55 PT 12.3 Sec. (12.2-14.9) 11/26/18 06:05 INR 0.94 (0.87-1.13) 11/26/18 06:05 APTT 21.3 Sec. (24.2-36.6) L 11/26/18 06:05 323 (74-137) H 11/26/18 07:13 Sodium 142 mmol/L (137-145) 12/04/18 05:33 Potassium 4.4 mmol/L (3.6-5.0) 12/04/18 05:33 Chloride 106.8 mmol/L (98-107) 12/04/18 05:33 Carbon Dioxide 27 mmol/L (22-30) 12/04/18 05:33 13 mmol/L 12/04/18 05:33 BUN 9 mg/dL (7-17) 12/04/18 05:33 0.6 mg/dL (0.7-1.2) L 12/04/18 05:33 Estimated GFR > 60 ml/min 12/04/18 05:33 15 % 12/04/18 05:33 Glucose 101 mg/dL (65-100) H 12/04/18 05:33 POC Glucose 131 (70-105) H 11/27/18 10:50 Calcium 8.8 mg/dL (8.4-10.2) 12/04/18 05:33 Magnesium 2.00 mg/dL (1.7-2.3) 11/30/18 05:55 0.40 mg/dL (0.1-1.2) 11/30/18 05:55 AST 35 units/L (5-40) 11/30/18 05:55 ALT 19 units/L (7-56) 11/30/18 05:55 40 units/L (35-129) 11/30/18 05:55 287 units/L (30-135) H 11/30/18 05:55 CK-MB (CK-2) 21.4 ng/mL (0.0-4.0) H 11/28/18 03:35 CK-MB (CK-2) Rel Index 2.7 (0-4) 11/28/18 03:35 2.740 ng/mL (0.00-0.029) H* 11/27/18 11:21 5.6 g/dL (6.3-8.2) L 11/30/18 05:55 2.9 g/dL (3.9-5) L 11/30/18 05:55 1.1 % 11/30/18 05:55 Triglycerides 55 mg/dL (2-149) 11/26/18 06:05 Cholesterol 143 mg/dL (50-199) 08/12/19 06:05 92 mg/dL (50-130) 11/26/18 06:05 61 mg/dL (40-59) H 11/26/18 06:05 2.34 % 11/26/18 06:05 Blood Type O POSITIVE 11/26/18 06:05 Antibody Screen Negative 11/26/18 06:05 Active Medications - Current Medications Current Medications: Generic Name Dose Route Start Last Admin Trade Name Freq PRN Reason Stop Dose Admin Acetaminophen 650 mg 11/26/18 15:44 11/26/18 20:18 Tylenol PO 650 mg Q4H PRN Administration Pain MILD(1-3)/Fever >100.5/[place] Acetaminophen/Hydrocodone Bitart 1 each 11/28/18 17:54 12/01/18 21:17 [place] 7.5/325 PO 1 each Q4H PRN Administration Pain, Moderate (4-6) Aspirin 81 mg 11/27/18 10:00 12/04/18 10:53 Baby Aspirin PO 81 mg QDAY TATA Administration Atorvastatin Calcium 80 mg 11/26/18 22:00 12/03/18 21:40 Lipitor PO 80 mg QHS TATA Administration Clopidogrel Bisulfate 75 mg 11/27/18 10:00 12/04/18 10:53 Plavix PO 75 mg QDAY TATA Administration Cyclobenzaprine HCl 10 mg 11/26/18 15:43 12/03/18 21:41 Flexeril PO 10 mg QHS PRN Administration Muscle Spasm Losartan Potassium 50 mg 11/28/18 10:00 12/04/18 10:52 Cozaar PO 50 mg QDAY TATA Administration Metoprolol Tartrate 50 mg 11/26/18 10:00 12/04/18 10:53 Lopressor PO 50 mg BID TATA Administration Morphine Sulfate 3 mg 11/28/18 17:54 12/04/18 05:36 Morphine IV 3 mg Q3H PRN Administration Pain , Severe (7-10) Ondansetron HCl 4 mg 11/26/18 18:15 11/26/18 18:35 Zofran IV 4 mg Q8H PRN Administration N/V unrelieved by Christoph Spironolactone 25 mg 11/26/18 10:00 12/04/18 10:53 Aldactone PO 25 mg DAILY TATA Administration Nutrition/Malnutrition Assess - Dietary Evaluation Nutrition/Malnutrition Findings: Nutrition Notes Start: 12/03/18 14:27 Freq: Status: Active Protocol: Document 12/03/18 14:27 OH (Rec: 12/03/18 14:43 OH [id number]) Nutrition Notes Need for Assessment generated from: LOS Initial or Follow up Assessment Current Diagnosis Heart Failure Other Pertinent Diagnosis obesity; hx smoking; R arm compartment syndrome; cardiac cath; IN Current Diet NPO Labs/Tests ALB 2.9 Pertinent Medications Reviewed Height 5 ft 4 in Weight 112.9 kg Ramer Body Weight (kg) 54.54 BMI 42.7 Intake Prior to Admission Good Weight Status Morbidly Obese Subjective/Other Information LOS: PT sitting in chair. Pt. verbalized she was not following any diet restrictions [employer]. Pt. has a PCP she sees for DM. Pt. cooks /shops for her own food. Pt. noted to have missing teeth. Open wound on R arm secondary to surgery to relieve swelling from compartment syndrome post cardiac cath. Percent of energy/protein needs met: 0/0% Burn Absent Trauma Absent GI Symptoms None Current % PO Negligible Minimum of two criteria Yes Energy Intake (severe) < or equal to 50% Estimated Energy Requirement > or equal to 5 days Protein-Calorie Malnutrition Severe #2 Nutrition Diagnosis Increased nutrient needs ( specify in comment below) Comments: wound healing Etiology increased PRO/KCAL needs As Evidenced by Signs and Symptoms open wound on right arm/low albumin #1 Nutrition Diagnosis Inadequate oral intake Etiology testing/surgery As Evidenced by Signs and Symptoms npo Is patient on ventilator? No Is Patient Ambulatory and/or Out of Bed Yes REE-([facility]OOB) [ 2163.200 NUTR.[id number]] Kcal/Kg value to use for calculation 18 Approximate Energy Requirements Using 2031 kcal/Kg Calculation Used for Recommendations Kcal/kg Additional Notes FLUID: 1 mL/kcal PROTEIN: 1-1.2 G/KG/IBW 54- 63 g/day Nutrition Intervention Change Diet Order: advance diet as tolerated/MD recommendation Add Supplement/Snack (indicate name/kcal ensure enlive q day /protein ) Provides kCal: 350 Provides Protein (gm) 20 Teaching Recipient Patient Teaching Methods Discussion,Handout Response to Teaching Reinforcement needed Education Handouts Provided Provided pt with handout outlining healthier eating practices. Suggested pt start a mvi daily or b complex due to wound. Enc healthier food choices to decrease healing time. Barriers to Learning Motivation,Physical,Age related,Financial, Environmental Goal #1 Monitor for diet advancement/ initiation ONS Follow-Up By: 12/05/18 Additional Comments f/u: diet advancement; po intake; ONS initiation- tolerance
--- NOTE | 2018-12-04 13:32 | Event Note ---
Date: 12/04/18 Patient evaluated and edema is significantly improved. Will proceed to OR today for washout an attempted closure of right arm fascitotmy incision today.
--- NOTE | 2018-12-04 16:26 | Anesthesia Consultation ---
Anesthesia Consult and Med Hx Date of service: 12/04/18 - Airway Anesthetic Teeth Evaluation: Poor ROM Head & Neck: Adequate Mental/Hyoid Distance: Adequate Mallampati Class: Class III Intubation Access Assessment: Possibly Difficult - Pre-Operative Health Status ASA Pre-Surgery Classification: ASA4 Proposed Anesthetic Plan: General - Pulmonary Hx Smoking: Yes (1/2 p/day current smoker) Hx Asthma: No SOB: No COPD: No Hx Pneumonia: No Hx Sleep Apnea: No - Cardiovascular System Hx Hypertension: Yes (unknown) Hx Coronary Artery Disease: Yes Hx Heart Attack/AMI: Yes (STEMI 11/26/18, EF 35%) Hx Angina: No Hx Percutaneous Transluminal Coronary Angioplasty (PTCA): Yes (LAD stent placement) Hx Pacemaker: No Hx Internal Defibrillator: No Hx Valvular Heart Disease: No Hx Heart Murmur: No Hx Peripheral Vascular Disease: Yes (s/p R arm fasciotomy for compartment sydrome) - Central Nervous System Hx Seizures: No CVA: No Hx Back Pain: No Hx Psychiatric Problems: No - Gastrointestinal Hx Ulcer: No - Endocrine Hx Renal Disease: No Hx End Stage Renal Disease: No Hx Cirrhosis: No Hx Liver Disease: No Hx Hypothyroidism: No Hx Hyperthyroidism: No - Hematic Hx Anemia: No Hx Sickle Cell Disease: No - Other Systems Hx Alcohol Use: Yes (occas bottle of wine) Hx Substance Use: No Hx Cancer: No Hx Obesity: Yes (Morbid obesity BMI 40.8)
--- NOTE | 2018-12-04 16:29 | Anesthesia Day of Surgery ---
Anesthesia Day of Surgery - Day of Surgery Patient Examined: Yes Patient H&P Reviewed: Yes Patient is NPO: Yes
[2018-12-04] MEDS ORDERED: DIPRIVAN 10 MG/ML IV ONE (18:34)
[2018-12-04] MEDS ORDERED: DILAUDID ONE (18:34)
[2018-12-04] MEDS ORDERED: XYLOCAINE MPF 2% ONE (18:35)
[2018-12-04] MEDS ORDERED: AMIDATE IV ONE (18:36)
[2018-12-04] MEDS ORDERED: ANCEF ONE (19:40)
[2018-12-04] MEDS ORDERED: ZOFRAN ONE (20:39)
[2018-12-04] MEDS ORDERED: NACL 0.9% 1000 ML 1,000 ML ONE (20:44)
--- NOTE | 2018-12-04 21:04 | Operative Report ---
Operative Report Operative Report: Date of Procedure: 12/04/2018 Pre-operative Diagnosis: Right Arm Compartment Syndrome Status Post D ecompressive Fasciotomy Post-operative Diagnosis: Same Procedure(s): 1. Washout of Right Arm Fasciotomy Incision with Pulsavac Using 2 L of Normal Saline 2. Closure of Right Arm Fasciotomy Incision Surgeon: Jordi Chung M.D. Commercial Carpenter: None Anesthesia: LMA EBL: Minimal Counts: Correct Complications: None Condition: Stable Findings: All tissue was viable. The upper portion of the incision was able to close without significant tension. The lower portion incision closed with a moderate amount of tension and require vertical mattress incisions to reduce the tension. Specimen: None Indication: The patient is a 63-year-old female who is status post decompressive fasciotomy of her right arm. She has elevated the arm and after swelling has resolved significantly she is in need of washout and closure of the wound. She was given the risks, benefits, and alternative procedures and consented to procedure. Description of Procedure: The patient was brought to the operating room and laid in supine position. After adequate anesthesia was achieved her right eye was prepped and draped in normal sterile fashion. The previous michelle and vessel loops of the Burak's Ladder were removed Pulsavac was used to copiously irrigate the wound. The wound was explored and all muscle was found to be healthy and viable. Hemostasis within the wound was achieved with direct pressure. Once hemostasis was achieved the wound was closed in 2 layers using a 3-0 Vicryl in running fashion in the deep dermal layer. The proximal half of the incision was then reapproximated using the Zip-Line Device to reapproximate the skin. The distal half of the incision was then closed with a combination of michelle and 2-0 Ethilon in vertical mattress fashion to reapproximate the skin. Was then dressed with Adaptic over the distal incision, fluffs, Kerlix roll, and a 3 inch Edward bandage over the hand followed by a 4 inch Edward bandage over the remainder of the arm. The patient tolerated the procedure well. All sponge, needle, and instrument counts were correct. The patient was taken to the recovery area in stable condition.
[2018-12-04] MEDS: ZOFRAN IV PRN (21:58)
[2018-12-05] MEDS: MORPHINE IV PRN ×3 (01:26→22:21)
[2018-12-05] MEDS: FLEXERIL PO PRN ×2 (01:27→09:55)
[2018-12-05] MEDS: NORCO 7.5/325 PO PRN ×2 (05:46→09:56)
[2018-12-05] MEDS: LOPRESSOR PO SCH ×2 (09:55→22:12)
[2018-12-05] MEDS: BABY ASPIRIN PO SCH (09:55)
[2018-12-05] MEDS: COZAAR PO SCH (09:57)
[2018-12-05] MEDS: ALDACTONE PO SCH (09:57)
[2018-12-05] MEDS: PLAVIX PO SCH (09:58)
--- NOTE | 2018-12-05 11:06 | Progress Note ---
Assessment and Plan The patient will need counseling on how to perform dressing changes on her hand. Would recommend wound care consult. From a vascular standpoint, the patient may be discharged with follow-up in our office in 2 weeks. Additionally, the rose marie bae will need reinforcement counseling on the need to elevate her hand until the swelling is decreased. Subjective Date of service: 12/05/18 Principal diagnosis: STEMI Interval history: Patient doing well clinically. Complaining only of some incisional pain. The patient underwent closure of her fasciotomy yesterday. She does have minimal persistent swelling in the hand and the patient was counseled again on the need to elevate her hand. The incision is clean dry and intact. 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 Objective - Constitutional Vitals: Vital Signs - 12hr 12/04/18 12/05/18 12/05/18 23:49 01:26 03:33 Temperature 98.4 F 99.7 F H Pulse Rate 83 88 Respiratory 18 18 18 Rate Blood Pressure 168/86 140/80 O2 Sat by Pulse 100 95 Oximetry 12/05/18 12/05/18 12/05/18 08:15 09:55 09:57 Temperature 99.1 F Pulse Rate Respiratory 18 Rate Blood Pressure 120/66 120/66 120/66 O2 Sat by Pulse Oximetry General appearance: Present: no acute distress - EENT Eyes: EOM intact ENT: hearing intact - Neck Neck: supple, normal ROM - Respiratory Respiratory effort: normal Extremities: abnormal - Gastrointestinal General gastrointestinal: Present: deferred Rectal Exam: deferred - Genitourinary Female genitourinary: deferred - Psychiatric Psychiatric: cooperative - Labs CBC & Chem 7: 12/04/18 05:33 12/04/18 05:33 Medications & Allergies - Medications Allergies/Adverse Reactions: Allergies ibuprofen [From Motrin] Allergy (Verified 12/18/16 00:40) Vomiting Home Medications: Home Medications Medication Instructions Recorded Confirmed Last Taken Type Acetaminophen/Codeine [Tylenol 1 tab PO Q6H PRN #12 tab 12/18/16 11/26/18 Unknown Rx /Codeine # 3 tab] Cyclobenzaprine [Flexeril] 10 mg PO QHS PRN #24 tablet 12/18/16 11/26/18 Unknown Rx Active Medications: Generic Name Dose Route Start Last Admin Trade Name Freq PRN Reason Stop Dose Admin Acetaminophen 650 mg 11/26/18 15:44 11/26/18 20:18 Tylenol PO 650 mg Q4H PRN Administration Pain MILD(1-3)/Fever >100.5/[place] Acetaminophen/Hydrocodone Bitart 1 each 11/28/18 17:54 12/05/18 09:56 [place] 7.5/325 PO 1 each Q4H PRN Administration Pain, Moderate (4-6) Aspirin 81 mg 11/27/18 10:00 12/05/18 09:55 Baby Aspirin PO 81 mg QDAY TATA Administration Atorvastatin Calcium 80 mg 11/26/18 22:00 12/04/18 22:01 Lipitor PO 80 mg QHS TATA Administration Clopidogrel Bisulfate 75 mg 11/27/18 10:00 12/05/18 09:58 Plavix PO 75 mg QDAY TATA Administration Cyclobenzaprine HCl 10 mg 11/26/18 15:43 12/05/18 09:55 Flexeril PO 10 mg QHS PRN Administration Muscle Spasm Losartan Potassium 50 mg 11/28/18 10:00 12/05/18 09:57 Cozaar PO 50 mg QDAY TATA Administration Metoprolol Tartrate 50 mg 11/26/18 10:00 12/05/18 09:55 Lopressor PO 50 mg BID TATA Administration Morphine Sulfate 3 mg 11/28/18 17:54 12/05/18 01:26 Morphine IV 3 mg Q3H PRN Administration Pain , Severe (7-10) Ondansetron HCl 4 mg 11/26/18 18:15 12/04/18 21:58 Zofran IV 4 mg Q8H PRN Administration N/V unrelieved by Christoph Spironolactone 25 mg 11/26/18 10:00 12/05/18 09:57 Aldactone PO 25 mg DAILY TATA Administration
--- NOTE | 2018-12-05 12:21 | Progress Note ---
Assessment and Plan Assessment and plan: Right arm compartment syndrome associated with neurological deficit; S/P: forearm fasciotomies superficial and deep compartments with release of carpal tunnel and application of Chen Ladders for partial wound closure and ligation of distal radial artery 11/28/18. Continue supportive care pain management IR/vascular with washout of right arm fasciotomy incision and closure yesterday. Consult wound care for further education and d/c planning STEMI (ST elevation myocardial infarction) ST elevation (STEMI) myocardial infarction involving left anterior descending coronary artery - s/p KHURRAM Dual antiplatelet therapy, beta blockers RAMANDEEP inhibitor's nitrates and statins cardiology following Acute combined systolic and diastolic ACC/AHA stage C congestive heart failure likely from acute STEMI, Cardiology following Nitro and Aggrastat drip discontinued ECHO:Moderate LVH, ejection fraction 40% Hyperlipemia, mixed, cont statin Tobacco abuse, smoking cessation counselled, nicotine patch as needed Obesity, diet regimen and weight reduction when clinically stable Hypokalemia, replaced Dvt Px, SCDs History Interval history: No new issues overnight. Hospitalist Physical - Constitutional Vitals: Temp Pulse Resp BP Pulse Ox 99.1 F 88 18 120/66 95 12/05/18 08:15 12/05/18 03:33 12/05/18 08:15 12/05/18 09:57 12/05/18 03:33 General appearance: Present: no acute distress - EENT Eyes: Present: PERRL, EOM intact ENT: hearing intact, clear oral mucosa, dentition normal - Neck Neck: Present: supple, normal ROM - Respiratory Respiratory effort: normal Respiratory: bilateral: CTA - Cardiovascular Rhythm: regular Heart Sounds: Present: S1 & S2. Absent: gallop, rub - Extremities Extremities: no ischemia, No edema, Full ROM - Abdominal General gastrointestinal: soft, non-tender, non-distended, normal bowel sounds - Integumentary Integumentary: Present: clear, warm, dry - Neurologic Neurologic: CNII-XII intact, moves all extremities Results - Labs CBC & Chem 7: 12/04/18 05:33 12/04/18 05:33 Labs: Laboratory Last Values WBC 6.4 K/mm3 (4.5-11.0) 12/04/18 05:33 RBC 3.90 M/mm3 (3.65-5.03) 12/04/18 05:33 Hgb 12.3 gm/dl (10.1-14.3) 12/04/18 05:33 Hct 36.4 % (30.3-42.9) 12/04/18 05:33 MCV 93 fl (79-97) 12/04/18 05:33 MCH 32 pg (28-32) 12/04/18 05:33 MCHC 34 % (30-34) 12/04/18 05:33 RDW 13.8 % (13.2-15.2) 12/04/18 05:33 Plt Count 314 K/mm3 (140-440) 12/04/18 05:33 Lymph % (Auto) 22.4 % (13.4-35.0) 11/30/18 05:55 [place] % (Auto) 9.2 % (0.0-7.3) H 11/30/18 05:55 Eos % (Auto) 2.9 % (0.0-4.3) 11/30/18 05:55 Baso % (Auto) 0.3 % (0.0-1.8) 11/30/18 05:55 Lymph # 1.6 K/mm3 (1.2-5.4) 11/30/18 05:55 [place] # 0.7 K/mm3 (0.0-0.8) 11/30/18 05:55 Eos # 0.2 K/mm3 (0.0-0.4) 11/30/18 05:55 Baso # 0.0 K/mm3 (0.0-0.1) 11/30/18 05:55 Seg Neutrophils % 65.2 % (40.0-70.0) 11/30/18 05:55 Seg Neutrophils # 4.6 K/mm3 (1.8-7.7) 11/30/18 05:55 PT 12.3 Sec. (12.2-14.9) 11/26/18 06:05 INR 0.94 (0.87-1.13) 11/26/18 06:05 APTT 21.3 Sec. (24.2-36.6) L 11/26/18 06:05 323 (74-137) H 11/26/18 07:13 Sodium 142 mmol/L (137-145) 12/04/18 05:33 Potassium 4.4 mmol/L (3.6-5.0) 12/04/18 05:33 Chloride 106.8 mmol/L (98-107) 12/04/18 05:33 Carbon Dioxide 27 mmol/L (22-30) 12/04/18 05:33 13 mmol/L 12/04/18 05:33 BUN 9 mg/dL (7-17) 12/04/18 05:33 0.6 mg/dL (0.7-1.2) L 12/04/18 05:33 Estimated GFR > 60 ml/min 12/04/18 05:33 15 % 12/04/18 05:33 Glucose 101 mg/dL (65-100) H 12/04/18 05:33 POC Glucose 131 (70-105) H 11/27/18 10:50 Calcium 8.8 mg/dL (8.4-10.2) 12/04/18 05:33 Magnesium 2.00 mg/dL (1.7-2.3) 11/30/18 05:55 0.40 mg/dL (0.1-1.2) 11/30/18 05:55 AST 35 units/L (5-40) 11/30/18 05:55 ALT 19 units/L (7-56) 11/30/18 05:55 40 units/L (35-129) 11/30/18 05:55 287 units/L (30-135) H 11/30/18 05:55 CK-MB (CK-2) 21.4 ng/mL (0.0-4.0) H 11/28/18 03:35 CK-MB (CK-2) Rel Index 2.7 (0-4) 11/28/18 03:35 2.740 ng/mL (0.00-0.029) H* 11/27/18 11:21 5.6 g/dL (6.3-8.2) L 11/30/18 05:55 2.9 g/dL (3.9-5) L 11/30/18 05:55 1.1 % 11/30/18 05:55 Triglycerides 55 mg/dL (2-149) 11/26/18 06:05 Cholesterol 143 mg/dL (50-199) 11/26/18 06:05 92 mg/dL (50-130) 11/26/18 06:05 61 mg/dL (40-59) H 11/26/18 06:05 2.34 % 11/26/18 06:05 Blood Type O POSITIVE 11/26/18 06:05 Antibody Screen Negative 11/26/18 06:05 Active Medications - Current Medications Current Medications: Generic Name Dose Route Start Last Admin Trade Name Freq PRN Reason Stop Dose Admin Acetaminophen 650 mg 11/26/18 15:44 11/26/18 20:18 Tylenol PO 650 mg Q4H PRN Administration Pain MILD(1-3)/Fever >100.5/[place] Acetaminophen/Hydrocodone Bitart 1 each 11/28/18 17:54 12/05/18 09:56 [place] 7.5/325 PO 1 each Q4H PRN Administration Pain, Moderate (4-6) Aspirin 81 mg 11/27/18 10:00 12/05/18 09:55 Baby Aspirin PO 81 mg QDAY TATA Administration Atorvastatin Calcium 80 mg 11/26/18 22:00 12/04/18 22:01 Lipitor PO 80 mg QHS TATA Administration Clopidogrel Bisulfate 75 mg 11/27/18 10:00 12/05/18 09:58 Plavix PO 75 mg QDAY TATA Administration Cyclobenzaprine HCl 10 mg 11/26/18 15:43 12/05/18 09:55 Flexeril PO 10 mg QHS PRN Administration Muscle Spasm Losartan Potassium 50 mg 11/28/18 10:00 12/05/18 09:57 Cozaar PO 50 mg QDAY TATA Administration Metoprolol Tartrate 50 mg 11/26/18 10:00 12/05/18 09:55 Lopressor PO 50 mg BID TATA Administration Morphine Sulfate 3 mg 11/28/18 17:54 12/05/18 01:26 Morphine IV 3 mg Q3H PRN Administration Pain , Severe (7-10) Ondansetron HCl 4 mg 11/26/18 18:15 12/04/18 21:58 Zofran IV 4 mg Q8H PRN Administration N/V unrelieved by Christoph Spironolactone 25 mg 11/26/18 10:00 12/05/18 09:57 Aldactone PO 25 mg DAILY TATA Administration Nutrition/Malnutrition Assess - Dietary Evaluation Nutrition/Malnutrition Findings: Nutrition Notes Start: 12/03/18 14:27 Freq: Status: Active Protocol: Document 12/03/18 14:27 [place] (Rec: 12/03/18 14:43 OH [id number]) Nutrition Notes Need for Assessment generated from: LOS Initial or Follow up Assessment Current Diagnosis Heart Failure Other Pertinent Diagnosis obesity; hx smoking; R arm compartment syndrome; cardiac cath; MA Current Diet NPO Labs/Tests ALB 2.9 Pertinent Medications Reviewed Height 5 ft 4 in Weight 112.9 kg [place] Body Weight (kg) 54.54 BMI 42.7 Intake Prior to Admission Good Weight Status Morbidly Obese Subjective/Other Information LOS: PT sitting in chair. Pt. verbalized she was not following any diet restrictions [employer]. Pt. has a PCP she sees for DM. Pt. cooks /shops for her own food. Pt. noted to have missing teeth. Open wound on R arm secondary to surgery to relieve swelling from compartment syndrome post cardiac cath. Percent of energy/protein needs met: 0/0% Burn Absent Trauma Absent GI Symptoms None Current % PO Negligible Minimum of two criteria Yes Energy Intake (severe) < or equal to 50% Estimated Energy Requirement > or equal to 5 days Protein-Calorie Malnutrition Severe #2 Nutrition Diagnosis Increased nutrient needs ( specify in comment below) Comments: wound healing Etiology increased PRO/KCAL needs As Evidenced by Signs and Symptoms open wound on right arm/low albumin #1 Nutrition Diagnosis Inadequate oral intake Etiology testing/surgery As Evidenced by Signs and Symptoms npo Is patient on ventilator? No Is Patient Ambulatory and/or Out of Bed Yes REE-([place]-St. Jeor-ambulatory/OOB) [ 2163.200 NUTR.MSJOOB] Kcal/Kg value to use for calculation 18 Approximate Energy Requirements Using 2031 kcal/Kg Calculation Used for Recommendations Kcal/kg Additional Notes FLUID: 1 mL/kcal PROTEIN: 1-1.2 G/KG/IBW 54- 63 g/day Nutrition Intervention Change Diet Order: advance diet as tolerated/MD recommendation Add Supplement/Snack (indicate name/kcal ensure enlive q day /protein ) Provides kCal: 350 Provides Protein (gm) 20 Teaching Recipient Patient Teaching Methods Discussion,Handout Response to Teaching Reinforcement needed Education Handouts Provided Provided pt with handout outlining healthier eating practices. Suggested pt start a mvi daily or b complex due to wound. Enc healthier food choices to decrease healing time. Barriers to Learning Motivation,Physical,Age related,Financial, Environmental Goal #1 Monitor for diet advancement/ initiation ONS Follow-Up By: 12/05/18 Additional Comments f/u: diet advancement; po intake; ONS initiation- tolerance
--- NOTE | 2018-12-05 13:10 | Progress Note ---
Assessment and Plan S/p right arm fasciotomy closure yesterday. Wound care consulted for further education and d/c planning. Currently stable cardiac status. Cont present cardiac management. Pt may discharge home from cardiology standpoint. Follow up in our [place] office with Dr. Rodriguez on 12/10/2018 @ 3:00PM. The patient has been seen in conjunction with Dr. Stoddard who agrees with the assessment and plan of care. - Patient Problems (1) STEMI (ST elevation myocardial infarction) Current Visit: Yes Status: Resolved (2) CAD (coronary artery disease) Current Visit: Yes Status: Chronic (3) Stented coronary artery Current Visit: Yes Status: Chronic (4) Acute HFrEF (heart failure with reduced ejection fraction) Current Visit: Yes Status: Resolved (5) Ischemic cardiomyopathy Current Visit: Yes Status: Chronic (6) Compartment syndrome of forearm Current Visit: Yes Status: Acute (7) Hyperlipemia, mixed Current Visit: Yes Status: Chronic (8) Smoker Current Visit: Yes Status: Chronic Subjective Date of service: 12/05/18 Principal diagnosis: STEMI Interval history: pt resting in bed, no current cardiac complaints. s/p right arm fasciotomy closure yesterday. daughter at bedside. Objective Last Vital Signs Temp 99.1 F 12/05/18 08:15 Pulse 88 12/05/18 03:33 Resp 18 12/05/18 08:15 BP 120/66 12/05/18 09:57 Pulse Ox 95 12/05/18 03:33 - Physical Examination General: No Apparent Distress HEENT: Positive: PERRL, Mucus Membranes Moist Neck: Positive: neck supple, trachea midline Cardiac: Positive: Reg Rate and Rhythm, S1/S2 Lungs: Positive: Decreased Breath Sounds Neuro: Positive: Grossly Intact Abdomen: Positive: Unremarkable, Soft, Active Bowel Sounds. Negative: Tender, Distended /Rectal: Other (deferred) Skin: Positive: Clear, Other (s/p RUE fasciotomy - gauze dressing with moderate amt of serosang drainage.) Incision: Cardiac Cath Site (s/p RUE fasciotomy. ) Musculoskeletal: No Pain, Normal Range of Motion, other (RUE pain) Extremities: Present: edema (RUE), Other (RUE is s/p fasciotomy. Surgical dressing in place. ) - Imaging and Cardiology Echo: report reviewed (11/2018: EF 40%, mod LVH, mid distal inferoseptum thin and akinetic, impaired relaxation) Cardiac cath: report reviewed (Left heart cath revealed left main patent LAD proximal 100% circumflex patent obtuse marginal 1 and obtuse marginal 2. RCA moderate severe tortuosity. Mild luminal irregularities. moderate LV dys function anterior wall hypokinesis EF 35%. PCI of the LAD with a drug-eluting resolution on next 3.5 x 18 mm postdilated with a 4.0 by 12 restoring DOMINIK-3 flow )
[2018-12-06] MEDS: MORPHINE IV PRN (04:24)
[2018-12-06] MEDS: TYLENOL PO PRN (06:31)
--- NOTE | 2018-12-06 08:35 | Discharge Summary ---
Providers - Providers Date of Admission: 11/26/18 08:20 Date of discharge: 12/06/18 Attending physician: DILAN AUGUSTE 11/26/18 Consult to Cardiac Rehabilitation [CONS] Routine Reason For Exam: post pci 11/26/18 06:10 Consult to Physician [CONS] Stat Comment: Consulting Provider: NAOMI RODRIGUEZ Physician Instructions: Reason For Exam: chest pain 11/27/18 15:21 Consult to Wound/ET Nurse [CONS] Routine Reason For Exam: wound eval 11/28/18 11:26 Consult to Physician [CONS] Routine Comment: Consulting Provider: MANJINDER ROSALES Physician Instructions: Reason For Exam: RUE edema s/p PCI 12/05/18 11:06 Consult to Wound/ET Nurse [CONS] Routine Reason For Exam: wound eval - counseling on dressing changes [facility] Reason for admission: [place], CP Condition: Stable Procedures: Cardiac catheterization Right arm fasciotomy Hospital course: 63-year-old female with PMH of obesity, smoker (half a pack a day) was admitted with complaints of mid sternal chest pressure burning in nature with sweating nausea no vomiting since the night prior to admission. Patient initially thought it was gas did not relieve with medications. Patient called EMS on the morning of admission with recurrent chest discomfort. Her initial EKG was not qualifying for an acute [place], frequent PVCs and no reciprocal changes per cardiology. EKG in the emergency room had ST elevation in anterior leads with PVCs. Therefore the patient was brought emergently to the cardiac [place] [employer] [place] for acute [place] protocol. Left heart cath revealed left main patent LAD proximal 100% circumflex patent obtuse marginal 1 and obtuse marginal 2. RCA moderate severe tortuosity. Mild luminal irregularities. moderate LV dysfunction anterior wall hypokinesis EF 35%. PCI of the LAD with a drug- eluting resolution on next 3.5 x 18 mm postdilated with a 4.0 by 12 restoring DOMINIK-3 flow patient's chest pain did improve. The patient underwent PCI through a right wrist approach. Shortly after she developed swelling and ecchymosis of the right arm with complaints of numbness and decreased motor of the right hand. She then developed blistering of the right forearm and had clinical symptoms of compartment syndrome. The patient was seen by vascular surgery and underwent decompression of her volar compartments of her right forearm. The patient had forearm fasciotomies superficial and deep compartments with release of carpal tunnel and application of Chen Ladders for partial wound closure and ligation of distal radial artery 11/28/18. The patient was continued with supportive care and appropriate pain management. Patient was monitored closely and later still under the care of IR and vascular surgery underwent washout of right arm fasciotomy incision and closure on 12/04/18. Breast was surgically felt the patient would need counseling on how to perform dressing changes on her hand with wound care. Once that is achieved, patient will discharge home and is to follow-up with vascular surgery in 2 weeks. Additionally Ramirez surgery recommends the patient will need reinforcement counseling on the need to elevate her hand until the swelling is decreased. Cardiology reports follow-up on 12/10/18. Dedicated discharge time 42 minutes Disposition: DC-01 TO HOME OR SELFCARE Time spent for discharge: 42 - Discharge Diagnoses (1) Compartment syndrome of forearm Status: Acute (2) CAD (coronary artery disease) Status: Chronic (3) Hyperlipemia, mixed Status: Chronic (4) Ischemic cardiomyopathy Status: Chronic (5) Smoker Status: Chronic (6) Stented coronary artery Status: Chronic (7) Acute HFrEF (heart failure with reduced ejection fraction) Status: Resolved (8) STEMI (ST elevation myocardial infarction) Status: Resolved (9) Acute combined systolic and diastolic ACC/AHA stage C congestive heart fa ilure Status: Acute Core Measure Documentation - Palliative Care Palliative Care/ Comfort Measures: Not Applicable - Core Measures Any of the following diagnoses?: acute [place], heart failure - Acute [place] Discharge Requirements Aspirin at discharge: Yes RAMANDEEP/ARB for LVSD if EF <40%: Yes Beta tiarra at discharge: Yes Statin for LDL = or >100 mg/dl on DC: Yes - Heart Failure Discharge Requirements RAMANDEEP/ARB for LVSD if EF <40%: Yes Beta tiarra at discharge: Yes Exam - Constitutional Vitals: Temp Pulse Resp BP Pulse Ox 98.4 F 77 18 106/54 98 12/06/18 04:09 12/06/18 04:08 12/06/18 06:31 12/06/18 04:08 12/06/18 04:08 General appearance: Present: no acute distress, well-nourished - EENT Eyes: Present: PERRL ENT: hearing intact, clear oral mucosa - Neck Neck: Present: supple, normal ROM - Respiratory Respiratory effort: normal Respiratory: bilateral: CTA - Cardiovascular Heart Sounds: Present: S1 & S2. Absent: rub, click - Extremities Extremities: abnormal (right arm dressing clean dry and intact) Peripheral Pulses: within normal limits - Abdominal General gastrointestinal: Present: soft, non-tender, non-distended, normal bowel sounds Female genitourinary: Present: normal - Integumentary Integumentary: Present: clear, warm, dry - Musculoskeletal Musculoskeletal: gait normal, strength equal bilaterally - Psychiatric Psychiatric: appropriate mood/affect, intact judgment & insight - Neurologic Neurologic: CNII-XII intact, moves all extremities Plan Activity: advance as tolerated Weight Bearing Status: Weight Bear as Tolerated Diet: low fat, low cholesterol, low salt Wound: per your surgeon's advice, per wound nurse instructions Special Instructions: home health RN Follow up with: DERRICK LANDA MD [Staff Physician] - 3-5 Days NAOMI RODRIGUEZ MD [Staff Physician] - 7 Days (Follow up in our [place] office with Dr. Rodriguez on 12/10/2018 @ 3:00PM. ) SHANIA IBANEZ MD [Staff Physician] - 7 Days Prescriptions: Spironolactone [Aldactone] 25 mg PO DAILY #30 tablet Aspirin [Aspirin BABY CHEW TAB] 81 mg PO QDAY #30 tab.chew Losartan [Cozaar] 50 mg PO QDAY #30 tablet Cyclobenzaprine [Flexeril 10 MG TAB] 10 mg PO QHS PRN #24 tablet PRN Reason: Muscle Spasm AtorvaSTATin [Lipitor] 80 mg PO QHS #30 tablet Metoprolol [Lopressor TAB] 50 mg PO BID #60 tablet HYDROcodone/APAP 7.5-325 [[place] 7.5-325 mg TAB] 1 each PO Q4H PRN #20 tablet PRN Reason: Pain, Moderate (4-6) Clopidogrel [Plavix] 75 mg PO QDAY #30 tablet
[2018-12-06] MEDS: COZAAR PO SCH (10:48)
[2018-12-06] MEDS: PLAVIX PO SCH (10:49)
[2018-12-06] MEDS: LOPRESSOR PO SCH (10:49)
[2018-12-06] MEDS: ALDACTONE PO SCH (10:50)
[2018-12-06] MEDS: NORCO 7.5/325 PO PRN ×2 (10:50→15:04)
[2018-12-06] MEDS: BABY ASPIRIN PO SCH (10:50)
[2018-12-06 15:50] VITALS: BP 128/62
== END 2018-12-06 15:00 | disposition home health service (06) | DRG 246 ==
LOC: ED 05:38 → CC1 08:20 → 4A 11-27 14:50 → UNDODISIN 12-05 15:15
PROVIDERS: ADMIT Internal Medicine; ATTEND Hospitalist
PROC: 027034Z Dilation of Coronary Artery, One Artery with Drug-eluting Intraluminal Device, Percutaneous Approach (ICD-10-PCS; principal; 2018-11-26)
PROC: 4A023N7 Measurement of Cardiac Sampling and Pressure, Left Heart, Percutaneous Approach (ICD-10-PCS; 2018-11-26)
PROC: B2111ZZ Fluoroscopy of Multiple Coronary Arteries using Low Osmolar Contrast (ICD-10-PCS; 2018-11-26)
PROC: B2151ZZ Fluoroscopy of Left Heart using Low Osmolar Contrast (ICD-10-PCS; 2018-11-26)
PROC: B241ZZ3 Ultrasonography of Multiple Coronary Arteries, Intravascular (ICD-10-PCS; 2018-11-26)
PROC: 03L Upper Arteries, Occlusion (ICD-10-PCS; 2018-11-28)
PROC: 0KN70ZZ Release Right Upper Arm Muscle, Open Approach (ICD-10-PCS; 2018-11-28)
PROC: 3E10X8Z Irrigation of Skin and Mucous Membranes using Irrigating Substance (ICD-10-PCS; 2018-12-04)
DX: I21.02 ST elevation (STEMI) myocardial infarction involving left anterior descending coronary artery (principal); I50.41 Acute combined systolic (congestive) and diastolic (congestive) heart failure; T79.A11A Traumatic compartment syndrome of right upper extremity, initial encounter; Z68.41 Body mass index [BMI] 40.0-44.9, adult; X58.XXXA Exposure to other specified factors, initial encounter; F17.200 Nicotine dependence, unspecified, uncomplicated; I25.10 Atherosclerotic heart disease of native coronary artery without angina pectoris; E66.01 Morbid (severe) obesity due to excess calories; E78.2 Mixed hyperlipidemia; E87.6 Hypokalemia; I25.5 Ischemic cardiomyopathy; I11.0 Hypertensive heart disease with heart failure; Z82.49 Family history of ischemic heart disease and other diseases of the circulatory system; Z72.89 Other problems related to lifestyle; I25.2 Old myocardial infarction; Z95.5 Presence of coronary angioplasty implant and graft; Z71.6 Tobacco abuse counseling
CPT/HCPCS: 36415; 71045; 80048; 80053; 80061; 82550; 82553; 82962; 83735; 84484; 85014; 85018; 85025; 85027; 85049; 85347; 85610; 85730; 86850; 86900; 86901; 92941; 92978; 93005; 93010; 93306; 93458; 94760; 96374; 96375; 99406; G0378; A9270-GY; C1725; C1753; C1769; C1874; C1887; C1894; C9606; J0171; J0461; J0690; J1170; J1644; J2001; J2250; J2270; J2370; J2405; J2704; J3010; J3246; J7030; J7040; J7120; Q9967